=== PATIENT | male | born 1995 | race Caucasian/White ===

== ENCOUNTER 2019-03-05 12:59 | Inpatient (IN) | payer MEDICAID ==
[~2019-03-05] VITALS: Ht 177.8 cm; Wt 72.0 kg
--- NOTE | 2019-03-05 13:30 | NUR ---
ADMIT NOTE: Pt. transferred from [facility] after he was brought in for self harm by hitting himself in the head with a rock. Pt. has multiple macular, papular, erythemic self inflicated wounds on forehead and face. No signs and symptoms of infection noted. Pt. reports that this was the second episode he had of self harm in 2 days. Pt. states, "I wanted to because I'm not a woman... I asked someone if they could cut my penis off". Admission assessment done and Pt.'s body check done but belongings check endorsed to police shift commander. During assessment pt. had moments of responding to internal stimuli, pt. making meditative pose and than waving hands in the air saying, "I'm pushing bad thoughts away". Pt. reports that he came to [facility] in July of 2018 go to [employer]. Pt. originally from [place]. Pt. filled out TONNY and RN spoke with pt.'s mom who reported pt. was hospitalized for psychotic episode in 2018. Pt. reports smoking Cannibis daily. Pt. currently denies SI/HI, A/V hallucinations. Addendum: 03/05/19 at 1816 by Bert Woods RN Pt. is transgender and prefers female pronouns and to be called Poonam.
[2019-03-05] MEDS ORDERED: loperamide 2mg capsule PO PRN (13:40)
[2019-03-05] MEDS ORDERED: magnesium hydroxide 30ml (MOM) UD suspension PO PRN (13:40)
[2019-03-05] MEDS ORDERED: mag hydrox/Alum hydrox/simeth 30ml oral suspension PO PRN (13:40)
[2019-03-05] MEDS ORDERED: acetaminophen 325mg tablet PO PRN ×2 (13:40)
[2019-03-05 19:00] VITALS: BP 126/94
[2019-03-05] MEDS ORDERED: OLANZapine 5mg rapidly disint. tablet PO ONE (20:20)
--- NOTE | 2019-03-06 04:20 | NUR ---
Nursing Progress Note Legal hold:5150 Client on involuntary status for DTS, Report received from RHODA Ervin with use of SBAR. Why are they here:ADMIT NOTE: Pt. transferred from [facility] after he was brought in for self harm by hitting himself in the head with a rock. Pt. has multiple macular, papular, erythemic self inflicated wounds on forehead and face. No signs and symptoms of infection noted. Pt. reports that this was the second episode he had of self harm in 2 days. Pt. states, "I wanted to because I'm not a woman... I asked someone if they could cut my penis off". Admission assessment done and Pt.'s body check done but belongings check endorsed to tobacco sprayer. During assessment pt. had moments of responding to internal stimuli, pt. making meditative pose and than waving hands in the air saying, "I'm pushing bad thoughts away". Pt. reports that he came to [facility] in July of 2018 go to [employer]. Pt. originally from [place]. Pt. filled out TONNY and RN spoke with pt.'s mom who reported pt. was hospitalized for psychotic episode in 2018. Pt. reports smoking Cannibis daily. Pt. currently denies SI/HI, A/V hallucinations. Addendum: 03/05/19 at 1816 by Bert Woods RN Pt. is transgender and prefers female pronouns and to be called Poonam. Assessment: Patient is isolating in his room. He is sitting up. Patient is tearful. This health science writer introduced himself and shook patients hand. The patient speaks quietly and make spoor eye contact. The patient explains he was transfered from [place]. The patient describes injuries on his forhead from hitting self with a rock. Patients forhead is abraised, it appears the patient may be picking at the wounds also. This patient states suicidal ideation, "I would like to stick my finger in a light socket but it will not work. If I had a knive I would run it through my heart." Patient is oriented to person and place, he knows the year and the name of the president. 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 Patient exhibits a relegious preoccupation. Patient states he has no options in life. Tangential speech and loose association is present. "I'm having a fear of lifetime of patience, walking down the street, laying in a ditch being held tight, I'm trying not to overeat." The patient tells this health science writer that he identifies as female and wants to be called Poonam. The patient was given Zyprexa 10 mg PO, Ativan was given 1mg PO. Patient gradualy calmed somewhat. He requested and was allowed to shower. Patient then retired to bed without incident. S/I, H/I:Suicidal ideation is present. A/VH: Responding to internal stimuli. Sleep:Will tally in am. ADL's:Patient responds well to prompting. Group attendance:N/A, new on unit. Were meds taken:Patient is medication compliant. Any med S/E: No Mental Status Exam Appearance:Disheveled, in need of personal hygeine. Eye contact:Poor Behavior:Delusional Speech:Tangenical, loose association. Mood:Depressed, suicidal. Affect:Flat. Thought process:"I'm upset, thoughts of suicide. Thought Content: Need to kill myself. Cognition: Suicidal. Insight:Poor. Judgment:Poor. Interventions PRN's used:Zyprexa, Ativan Therapeutic interventions: 1:1 assessment, active listening, therapeutic conversation, medication administration/education/monitoring, encouragement of autonomy in ADLs, encouragement to attend groups, encouragement of PO food and fluids, reality orientation, limit setting, fall prevention, monitoring of behaviors and need for intervention, fall prevention prevention of SIB, elopement prevention, Q 15 min safety checks. Restraints/seclusion/emergency medication: None Justification of Continued Inpatient Treatment: Pt continues to endorse SI with a plan.Patient needs further medication adjustment and monitoring in a safe therapeutic environment to prevent self harm or readmission. Justification:High risk for suicide or serious self injury.
[2019-03-06 07:42] VITALS: BP 93/60
[2019-03-06 09:30] LABS: CHOL/HDL RATIO 2.4 (0.00-4.99); CHOLESTEROL 92 MG/DL (0-200); HDL CHOLESTEROL 39 MG/DL (35-60); LDL CHOLESTEROL 40 MG/DL (50-100); TRIGLYCERIDES 59 MG/DL (20-135)
[2019-03-06 09:33] LABS: HEMOGLOBIN A1C 5.5 % (4.5-6.2)
--- NOTE | 2019-03-06 15:51 | NUR ---
Nursing Progress Note Legal hold:5150 Client on involuntary status for DTS, Report received from Sandra Kumar RN with use of SBAR. Why are they here: Pt. transferred from [facility] after he was brought in for self harm by hitting himself in the head with a rock. Pt. has multiple macular, papular, erythemic self inflicated wounds on forehead and face. No signs and symptoms of infection noted. Pt. reports that this was the second episode he had of self harm in 2 days. Pt. states, "I wanted to because I'm not a woman... I asked someone if they could cut my penis off". Admission assessment done and Pt.'s body check done but belongings check endorsed to support technician. During assessment pt. had moments of responding to internal stimuli, pt. making meditative pose and than waving hands in the air saying, "I'm pushing bad thoughts away". Pt. reports that he came to [facility] in July of 2018 go to [facility]. Pt. originally from [place]. Pt. filled out TONNY and RN spoke with pt.'s mom who reported pt. was hospitalized for psychotic episode in 2018. Pt. reports smoking Cannabis daily. Pt. currently denies SI/HI, A/V hallucinations. Assessment: What has happened this shift: Received pt awake in his room. Pt was guarded and resistive to talking with staff. Pt appeared suspicious. Pt then stated that, people are walking by and I feel like theyre looking at me and really seeing me for who I am. Pt acted bothered by this. As this nurse began to talk more with him, trust was gained and pt more open to answer questions. Pt denies a/v hallucinations, but appeared internally preoccupied. Pt visible on the unit at times through out the day, but spent most of the time in his room. Pt remains disorganized with bizarre thoughts. Pt in the afternoon, was sitting on the floor of his room and when questioned stated, I dont like my material body, if I had a rock, Id smash my face right now. S/I, H/I:Suicidal ideation is present. A/VH: Responding to internal stimuli. Sleep:Will tally in am. ADL's:Patient responds well to prompting. Group attendance: partial Were meds taken: no meds ordered Any med S/E: No Mental Status Exam Appearance:Disheveled, in need of personal hygiene. Eye contact:Poor Behavior:Delusional Speech:Tangential, loose association. Mood:Depressed, suicidal. Affect:Flat. Thought process: bizarre and disorganized Thought Content: Need to kill myself. Cognition: Suicidal. Insight:Poor. Judgment:Poor. Interventions PRN's used: Therapeutic interventions: 1:1 assessment, active listening, therapeutic conversation, medication administration/education/monitoring, encouragement of autonomy in ADLs, encouragement to attend groups, encouragement of PO food and fluids, reality orientation, limit setting, fall prevention, monitoring of behaviors and need for intervention, fall prevention prevention of SIB, elopement prevention, Q 15 min safety checks. Restraints/seclusion/emergency medication: None Justification of Continued Inpatient Treatment: Pt continues to endorse SI with a plan.Patient needs further medication adjustment and monitoring in a safe therapeutic environment to prevent self harm or readmission. High risk for suicide or serious self injury.
[2019-03-06] MEDS ORDERED: NO HOME MEDS (16:36)
[2019-03-06 20:00] VITALS: BP 111/76
[2019-03-06] MEDS: OLANZapine 2.5MG tablet PO SCH (23:07)
[2019-03-06] MEDS: LORazepam 1 MG tablet PO PRN (23:07)
--- NOTE | 2019-03-07 04:36 | NUR ---
Nursing Progress Note Legal hold:5150 Client on involuntary status for DTS, Report received from Sandra Tomlinson RN with use of SBAR. Why are they here: Pt. transferred from [facility] after he was brought in for self harm by hitting himself in the head with a rock. Pt. has multiple macular, papular, erythemic self inflicated wounds on forehead and face. No signs and symptoms of infection noted. Pt. reports that this was the second episode he had of self harm in 2 days. Pt. states, "I wanted to because I'm not a woman... I asked someone if they could cut my penis off". Admission assessment done and Pt.'s body check done but belongings check endorsed to pearl glue operator. During assessment pt. had moments of responding to internal stimuli, pt. making meditative pose and than waving hands in the air saying, "I'm pushing bad thoughts away". Pt. reports that he came to [facility] in July of 2018 go to [facility]. Pt. originally from [place]. Pt. filled out TONNY and RN spoke with pt.'s mom who reported pt. was hospitalized for psychotic episode in 2018. Pt. reports smoking Cannabis daily. Pt. currently denies SI/HI, A/V hallucinations. Assessment: This patient is awake and well oriented. He ambulates the halls, then isolates in his room sitting on the floor. This patient wears a dress today. He does not openly discuss his sexual identity. Patient continues to respond to internal stimuli, he fixates on mandaen. The patient denies hearing voices, he then states "I don't hear them but they masquerade as my own voice." Patient states he felt some depression late afternoon but "I pulled myself out." Some moderate anxiety and pacing was present but resolved following Ativan administration PO. This patient is friendly, cooperative with staff, he is medication compliant. This patient is reassured that he is in a safe place. S/I, H/I:Patient denies on pearl glue operator. A/VH: Responding to internal stimuli. Sleep:Will tally in am. ADL's:Patient responds well to prompting. Group attendance: No group on pearl glue operator. Were meds taken: Patient is medication compliant. Any med S/E: None. Mental Status Exam Appearance:Disheveled, in need of personal hygiene. Eye contact: Fair. Behavior:Delusional Speech:Tangential, loose association. Mood: Depression present. Affect:Flat. Thought process: bizarre and disorganized Thought Content: Feeling depressed earlier but better now. Cognition: Poor. Insight:Poor. Judgment:Poor. Interventions PRN's used: Therapeutic interventions: 1:1 assessment, active listening, therapeutic conversation, medication administration/education/monitoring, encouragement of autonomy in ADLs, encouragement to attend groups, encouragement of PO food and fluids, reality orientation, limit setting, fall prevention, monitoring of behaviors and need for intervention, fall prevention prevention of SIB, elopement prevention, Q 15 min safety checks. Restraints/seclusion/emergency medication: None Justification of Continued Inpatient Treatment: Pt continues to endorse SI with a plan.Patient needs further medication adjustment and monitoring in a safe therapeutic environment to prevent self harm or readmission. High risk for suicide or serious self injury.
[2019-03-07 08:05] VITALS: BP 109/64
--- NOTE | 2019-03-07 15:05 | NUR ---
Nursing Progress Note Legal hold:5150 Client on involuntary status for DTS, Report received from Sandra Kumar RN with use of SBAR. Why are they here: Pt. transferred from [facility] after he was brought in for self harm by hitting himself in the head with a rock. Pt. has multiple macular, papular, erythemic self inflicated wounds on forehead and face. No signs and symptoms of infection noted. Pt. reports that this was the second episode he had of self harm in 2 days. Pt. states, "I wanted to because I'm not a woman... I asked someone if they could cut my penis off". Admission assessment done and Pt.'s body check done but belongings check endorsed to material handler 2nd shift. During assessment pt. had moments of responding to internal stimuli, pt. making meditative pose and than waving hands in the air saying, "I'm pushing bad thoughts away". Pt. reports that he came to [facility] in July of 2018 go to [facility]. Pt. originally from [place]. Pt. filled out TONNY and RN spoke with pt.'s mom who reported pt. was hospitalized for psychotic episode in 2018. Pt. reports smoking Cannabis daily. Pt. currently denies SI/HI, A/V hallucinations. Assessment: What has happened this shift: Received pt awake in his room. Pt was guarded and resistive to talking with staff. Pt appeared less suspicious today than yesterday. Pt denies a/v hallucinations, but appeared internally preoccupied at times. Pt visible on the unit at times through out the day, but spent most of the time in his room. Pt remains disorganized with bizarre thoughts. Pt in the afternoon, was standing in the window in his room looking through a samaritan book. Pt stated his thoughts were telling him that this person (staff talking to him) was just a bother and didnt really care. Pt stated he was able to ignore those thoughts as not true. Pt denied thoughts of self harm. S/I, H/I:denies A/VH: Responding to internal stimuli. Sleep:no napping today ADL's:Patient responds well to prompting. - took a shower this am. Group attendance: none Were meds taken: no meds ordered Any med S/E: No Mental Status Exam Appearance:Disheveled, in need of personal hygiene. Eye contact:Poor Behavior:Delusional Speech:Tangential, loose association. Mood:Depressed, suicidal. Affect:Flat. Thought process: bizarre and disorganized Thought Content: samaritan and about the merari leaf Cognition: Suicidal. Insight:Poor. Judgment:Poor. Interventions PRN's used: Therapeutic interventions: 1:1 assessment, active listening, therapeutic conversation, medication administration/education/monitoring, encouragement of autonomy in ADLs, encouragement to attend groups, encouragement of PO food and fluids, reality orientation, limit setting, fall prevention, monitoring of behaviors and need for intervention, fall prevention prevention of SIB, elopement prevention, Q 15 min safety checks. Restraints/seclusion/emergency medication: None Justification of Continued Inpatient Treatment: Pt continues to endorse SI with a plan.Patient needs further medication adjustment and monitoring in a safe therapeutic environment to prevent self harm or readmission. High risk for suicide or serious self injury.
[2019-03-07 19:58] VITALS: BP 113/72
[2019-03-07] MEDS: OLANZapine 2.5MG tablet PO SCH (20:30)
--- NOTE | 2019-03-08 01:03 | NUR ---
Nursing Progress Note Legal hold:5150 Client on involuntary status for DTS, Report received from Davi RN with use of SBAR. Why are they here: Pt. transferred from [facility] after he was brought in for self harm by hitting himself in the head with a rock. Pt. has multiple macular, papular, erythremic self inflicted wounds on forehead and face. No signs and symptoms of infection noted. Pt. reports that this was the second episode he had of self harm in 2 days. Pt. states, "I wanted to because I'm not a woman... I asked someone if they could cut my penis off". Admission assessment done and Pt.'s body check done but belongings check endorsed to assistant casino shift manager. During assessment pt. had moments of responding to internal stimuli, pt. making meditative pose and than waving hands in the air saying, "I'm pushing bad thoughts away". Pt. reports that he came to [facility] in July of 2018 go to [facility]. Pt. originally from [place]. Pt. filled out TONNY and RN spoke with pt.'s mom who reported pt. was hospitalized for psychotic episode in 2018. Pt. reports smoking Cannabis daily. Pt. currently denies SI/HI, A/V hallucinations. Assessment: What has happened this shift: Pt sitting cross legged on the floor in his room at the start of the shift. Pt prefers to be called Poonam. Pt smiles easily makes good eye contact. Conversation disorganized. When asked where he is from pt says "I can't remember" Then starts talking about walking [place] to [place] once. He traveled along the [address] free[address] often walking through forests. He said it did not take long to get there because he "scurries along like a rabbit." Pt said he did not remember how he got Multiple self inflicted wounds on his face and forehead. He describes his mood as "good". When asked about voices he said "I never wanted to smoke." later he did deny voices. Up to group room for snack and watched TV with other pts for a short time. Ambulated in the halls went back to bed. S/I, H/I:denies A/VH: Responding to internal stimuli. Sleep:Asleep at this time ADL's:Patient responds well to prompting. - took a shower this am. Group attendance: none Were meds taken: yes Any med S/E: No Mental Status Exam Appearance: Disheveled, in need of personal hygiene. Eye contact: Good Behavior: Pleasant cooperative Speech:Tangential, loose association. Mood:Pleasant cheerful Affect: animated Thought process: bizarre and disorganized Thought Content: tangential Cognition: fair Insight:Poor. Judgment:Poor. Interventions PRN's used: none Therapeutic interventions: 1:1 assessment, active listening, therapeutic conversation, medication administration/education/monitoring, encouragement of autonomy in ADLs, encouragement to attend groups, encouragement of PO food and fluids, reality orientation, limit setting, fall prevention, monitoring of behaviors and need for intervention, fall prevention prevention of SIB, elopement prevention, Q 15 min safety checks. Restraints/seclusion/emergency medication: None Justification of Continued Inpatient Treatment: Pt continues to endorse SI with a plan.Patient needs further medication adjustment and monitoring in a safe therapeutic environment to prevent self harm or readmission. High risk for suicide or serious self injury.
[2019-03-08 08:00] VITALS: BP 112/75
--- NOTE | 2019-03-08 14:30 | NUR ---
Provided Poonam with information on [facility] and [facility] at [facility] at her request. MARY Mai
--- NOTE | 2019-03-08 16:58 | NUR ---
Nursing Progress Note: Legal hold:5250 Client on involuntary status for DTS, Report received from RN with use of SBAR. Why are they here: Pt. transferred from [facility] after he was brought in for self harm by hitting himself in the head with a rock. Pt. has multiple macular, papular, erythemic self inflicated wounds on forehead and face. No signs and symptoms of infection noted. Pt. reports that this was the second episode he had of self harm in 2 days. Pt. states, "I wanted to because I'm not a woman... I asked someone if they could cut my penis off". Admission assessment done and Pt.'s body check done but belongings check endorsed to warehouse worker 2nd shift. During assessment pt. had moments of responding to internal stimuli, pt. making meditative pose and than waving hands in the air saying, "I'm pushing bad thoughts away". Pt. reports that he came to [facility] in July of 2018 go to [facility]. Pt. originally from [place]. Pt. filled out TONNY and RN spoke with pt.'s mom who reported pt. was hospitalized for psychotic episode in 2018. Pt. reports smoking Cannabis daily. Pt. currently denies SI/HI, A/V hallucinations. Assessment: What has happened this shift: Received pt awake in his room at the beginning of this shift. Pt pleasant, breif and pressured in conversation. Pt did not have AM medications but got up and ate meals in community room with others. Spent free time in room reading books he brought onto unit. Pt missed going on patio break and thought he was being deceived and became anxious and pressured and angry. He was able to be redirected and went back to his room to read and meditate. He appeares internally preoccupied at times, and responding visually with eye movements that appear he is seeing something. He spent most of the day in his room isolating to self. Pt remains disorganized with bizarre thoughts. Pt denied thoughts of self harm. S/I, H/I: Denies A/VH: Responding to internal stimuli. Sleep: None on this shift ADL's:Patient responds well to prompting. - took a shower this am. Group attendance: none Were meds taken: no meds ordered Any med S/E: No Mental Status Exam Appearance:Disheveled, in need of personal hygiene. Eye contact:Poor Behavior:Delusional Speech:Tangential, loose association. Mood:Anxious. Affect: Flat. Thought process: Bizarre and disorganized Thought Content: Roman [employer] issues Cognition: Suicidal. Insight:Poor. Judgment:Poor. Interventions PRN's used: Therapeutic interventions: 1:1 assessment, active listening, therapeutic conversation, medication administration/education/monitoring, encouragement of autonomy in ADLs, encouragement to attend groups, encouragement of PO food and fluids, reality orientation, limit setting, fall prevention, monitoring of behaviors and need for intervention, fall prevention prevention of SIB, elopement prevention, Q 15 min safety checks. Restraints/seclusion/emergency medication: None Justification of Continued Inpatient Treatment: Pt continues to endorse SI with a plan.Patient needs further medication adjustment and monitoring in a safe therapeutic environment to prevent self harm or readmission. High risk for suicide or serious self injury.
[2019-03-08] MEDS ORDERED: FLU VACC QS 2019-20 (6 MOS UP) 60 MCG/0.5 ML VIAL IMVAC ONE (17:15)
[2019-03-08] MEDS ORDERED: lurasidone 60mg tablet PO SCH (17:30)
[2019-03-08] MEDS ORDERED: lurasidone 20mg tablet PO SCH (18:17)
[2019-03-08] MEDS ORDERED: lurasidone 60mg tablet PO ONE (18:27)
[2019-03-08] MEDS ORDERED: lurasidone 20mg tablet PO ONE (18:28)
[2019-03-08 20:00] VITALS: BP 145/74
--- NOTE | 2019-03-09 00:30 | NUR ---
Nursing Progress Note: Legal hold:5250 Client on involuntary status for DTS, Report received from RN with use of SBAR. Why are they here: Pt. transferred from [facility] after he was brought in for self harm by hitting himself in the head with a rock. Pt. has multiple macular, papular, erythremic self inflicted wounds on forehead and face. No signs and symptoms of infection noted. Pt. reports that this was the second episode he had of self harm in 2 days. Pt. states, "I wanted to because I'm not a woman... I asked someone if they could cut my penis off". Admission assessment done and Pt.'s body check done but belongings check endorsed to drug safety physician. During assessment pt. had moments of responding to internal stimuli, pt. making meditative pose and than waving hands in the air saying, "I'm pushing bad thoughts away". Pt. reports that he came to [facility] in July of 2018 go to [facility]. Pt. originally from [place]. Pt. filled out TONNY and RN spoke with pt.'s mom who reported pt. was hospitalized for psychotic episode in 2018. Pt. reports smoking Cannabis daily. Pt. currently denies SI/HI, A/V hallucinations. Assessment: What has happened this shift: Pt awake at start of shift. Up on unit pleasant talkative disorganized thoughts. He has drawn on his face with felt markers. Denies SI or hallucinations. Not observed responding to internal stimuli. Pt cooperative with care took meds. Pt wants to be called Poonam. He is not wearing an arm band and refused to wear one that said Thaddeuss instead of Martha. S/I, H/I: Denies A/VH: Denies Sleep: Asleep at this time ADL's:Patient responds well to prompting. - took a shower this am. Group attendance: group room for snack Were meds taken: yes Any med S/E: No Mental Status Exam Appearance:Disheveled, in need of personal hygiene. Eye contact:Poor Behavior:Delusional Speech:Tangential, loose association. Mood:Anxious. Affect: Flat. Thought process: Bizarre and disorganized Thought Content: Yarsani issues Cognition: fair Insight:Poor. Judgment:Poor. Interventions PRN's used: Therapeutic interventions: 1:1 assessment, active listening, therapeutic conversation, medication administration/education/monitoring, encouragement of autonomy in ADLs, encouragement to attend groups, encouragement of PO food and fluids, reality orientation, limit setting, fall prevention, monitoring of behaviors and need for intervention, fall prevention prevention of SIB, elopement prevention, Q 15 min safety checks. Restraints/seclusion/emergency medication: None Justification of Continued Inpatient Treatment: Pt continues to endorse SI with a plan.Patient needs further medication adjustment and monitoring in a safe therapeutic environment to prevent self harm or readmission. High risk for suicide or serious self injury.
[2019-03-09 07:33] VITALS: BP 121/81
--- NOTE | 2019-03-09 16:17 | NUR ---
Nursing Progress Note: Legal hold:5250 Client on involuntary status for DTS, Report received from RN with use of SBAR. Why are they here: Pt. transferred from [facility] after he was brought in for self harm by hitting himself in the head with a rock. Pt. has multiple macular, papular, erythemic self inflicated wounds on forehead and face. No signs and symptoms of infection noted. Pt. reports that this was the second episode he had of self harm in 2 days. Pt. states, "I wanted to because I'm not a woman... I asked someone if they could cut my penis off". Admission assessment done and Pt.'s body check done but belongings check endorsed to shift engineer. During assessment pt. had moments of responding to internal stimuli, pt. making meditative pose and than waving hands in the air saying, "I'm pushing bad thoughts away". Pt. reports that he came to [facility] in July of [facility]. Pt. originally from [place]. Pt. filled out TONNY and RN spoke with pt.'s mom who reported pt. was hospitalized for psychotic episode in 2018. Pt. reports smoking Cannabis daily. Pt. currently denies SI/HI, A/V hallucinations. Assessment: What has happened this shift: Patient was asleep at change of shift and up for breakfast. Patient ate breakfast with a hoody on. Patient has noticeable scabbed wounds on her face. Patient in her room sitting on the floor. RN got patient a clean set of sheets and sat down in patient's room. Patient calm and cooperative. Patient asked if he still felt like harming himself. He sat quietly for about a minute and then said "no." Patient also denies hearing voices; however, patient is heard responding to internal stimuli in his room. Patient acts bizarre showing RN a small cup of yogurt telling her "it's a miracle working potion from the gods." Patient is holding what appears to be a book of Confucianist. Patient does not attend group and meditates in his room. S/I, H/I: Denies A/VH: Responding to internal stimuli. Sleep: None ADL's:Patient took shower yesterday but needs deodorant. Group attendance: none Were meds taken: no meds in am. Has med scheduled in 30 minutes. Any med S/E: No Mental Status Exam Appearance:Disheveled, in need of personal hygiene. Eye contact:Poor Behavior:Delusional Speech:Tangential, loose association. Mood:Anxious. Affect: Flat. Thought process: Bizarre and disorganized Thought Content: Judaism Cognition: Unknown Insight:Poor. Judgment:Poor. Interventions PRN's used: Therapeutic interventions: 1:1 assessment, active listening, therapeutic conversation, medication administration/education/monitoring, encouragement of autonomy in ADLs, encouragement to attend groups, encouragement of PO food and fluids, reality orientation, limit setting, fall prevention, monitoring of behaviors and need for intervention, fall prevention prevention of SIB, elopement prevention, Q 15 min safety checks. Restraints/seclusion/emergency medication: None Justification of Continued Inpatient Treatment: Pt continues to endorse SI with a plan.Patient needs further medication adjustment and monitoring in a safe therapeutic environment to prevent self harm or readmission. High risk for suicide or serious self injury.
[2019-03-09 20:00] VITALS: BP 111/70
--- NOTE | 2019-03-10 01:24 | NUR ---
Nursing Progress Note: Legal hold: 5250 Client on involuntary status for DTS, Report received from RHODA Ervin with use of SBAR. Why are they here: Pt. transferred from [facility] after he was brought in for self harm by hitting himself in the head with a rock. Pt. has multiple macular, papular, erythemic self inflicated wounds on forehead and face. No signs and symptoms of infection noted. Pt. reports that this was the second episode he had of self harm in 2 days. Pt. states, "I wanted to because I'm not a woman... I asked someone if they could cut my penis off". Admission assessment done and Pt.'s body check done but belongings check endorsed to oil field tester. During assessment pt. had moments of responding to internal stimuli, pt. making meditative pose and than waving hands in the air saying, "I'm pushing bad thoughts away". Pt. reports that he came to [facility] in July of [address] [facility]. Pt. originally from [place]. Pt. filled out TONNY and RN spoke with pt.'s mom who reported pt. was hospitalized for psychotic episode in 2018. Pt. reports smoking Cannabis daily. Pt. currently denies SI/HI, A/V hallucinations. Assessment: What has happened this shift: The patient was found in her room. She was sitting on the floor behind her door in a yoga pose reading a book. She is soft spoken and cooperative. She reports that the wounds on her face are from hitting it with a rock. She states that she hates being a woman in a man's body. "It's really hard to live. I can't do it...I can't live like this anymore." She says that she's a "forest dweller" because she doesn't like to be around people that won't accept her. "But there's nobody to talk to." The patient says she's depressed, but denies wanting to hurt herself right now. She spoke of the possibility of a support group, and seems interested. She was not observed responding to IS tonight. She isolated to her room all night. S/I, H/I: Denies A/VH: Not observed. Sleep: See sleep hours. ADL's: Independent. Group attendance: No groups at night Were meds taken: Yes, PRN's. Any med S/E: No Mental Status Exam Appearance: Disheveled, wounds on her face and forehead, wearing green unit scrubs. Eye contact: Good Behavior: Isolative. Speech: Tangential, loose association. Mood: depressed, anxious. Affect: Flat. Thought process: Bizarre and disorganized Thought Content: Mandaen Cognition: Unknown Insight:Poor. Judgment:Poor. Interventions PRN's used: Ativan, Maalox. Therapeutic interventions: 1:1 assessment, active listening, therapeutic conversation, medication administration/education/monitoring, encouragement of autonomy in ADLs, encouragement to attend groups, encouragement of PO food and fluids, reality orientation, limit setting, fall prevention, monitoring of behaviors and need for intervention, fall prevention prevention of SIB, elopement prevention, Q 15 min safety checks. Restraints/seclusion/emergency medication: None Justification of Continued Inpatient Treatment: Pt continues to endorse SI with a plan.Patient needs further medication adjustment and monitoring in a safe therapeutic environment to prevent self harm or readmission. High risk for suicide or serious self injury.
[2019-03-10] MEDS: LORazepam 1 MG tablet PO PRN ×2 (01:47→20:44)
[2019-03-10 07:17] VITALS: BP 113/75
--- NOTE | 2019-03-10 09:43 | NUR ---
Pt in group room squating on chair holding her mandaen "beads" . A "mandaen" symbol drawn on forehead with marker. In a very pleasant mod. Smiles appropriately.
--- NOTE | 2019-03-10 10:18 | NUR ---
Initial: Pt admit w/ psychosis w/ hx meth abuse. PO 75-100% avg regular diet w/ occasional refusal meeting needs. LBM 03/09. No nutrition concerns at this time. Will continue to monitor. Rec: 1. continue regular diet 2. bowel are as needed 3. wt per rx Addendum: 03/10/19 at [address] Amended: Links added.
--- NOTE | 2019-03-10 13:35 | NUR ---
Pt in his room sitting on bed conversing with warp dyeing vat tender. Earlier pt was walking in halls wit head down and would not make eye contact with anyone.
--- NOTE | 2019-03-10 15:05 | NUR ---
Pt was in art therapy when she took the felt pen and stabbed herself in the head. Pt was taken back to her room. Pt asked why she wants to harm herself and pt states she doesn't want to live like this. RN spoke with pt who states she is having nicotine withdrawals but does not want to have any nicotine to relieve the cravings. pt asked if she had any pens or pencils she could harm herself with. RN given a small pencil and felt marker voluntarily by pt.
--- NOTE | 2019-03-10 16:38 | NUR ---
Pt in community room. Pt has drawn "christian" symbols on arms in addition to the ones already on her face and neck. Pt was "given" some sticker gems which she has now placed on her arms.
[2019-03-10] MEDS: lurasidone 20mg tablet PO SCH (17:48)
[2019-03-10 20:00] VITALS: BP 101/75
--- NOTE | 2019-03-10 20:30 | NUR ---
Nursing Note: Ordered flu shot administered in left deltoid at HS, pt. tolerated procedure well. Pt. also reports small abrasion on rt. stomach, area appears to be scabbed, no s/s of infection. Obtained picture to place in chart, will continue to monitor.
[2019-03-10] MEDS ORDERED: LORazepam 1 MG tablet PO ONE (22:45)
[2019-03-11] MEDS ORDERED: quetiapine 100mg tablet PO ONE
--- NOTE | 2019-03-11 | NUR ---
Nursing Note: Pt. continuing to report insomnia at midnight, obtained order from VIELKA Dunham for Seroquel 100mg MRX1 (within one hour if ineffective). However, upon going to administer medication found pt. asleep, will continue to monitor.
--- NOTE | 2019-03-11 02:50 | NUR ---
Nursing Progress Note: Legal hold:5250 Client on involuntary status for DTS Report received from nurse with use of SBAR: RHODA Coleman Why are they here: Pt. transferred from [facility] after being brought in for self harm r/t hitting self in the head with a rock. Pt. has multiple self-inflicted wounds on forehead and face. Pt. reports that this was the second episode of self-inflicted harm in the past two days. Pt. states, "I wanted to because I'm not a woman... I asked someone if they could cut my penis off.". During admission, pt. had moments of responding to internal stimuli, making meditative poses and then waving hands in the air saying, "I'm pushing bad thoughts away". Pt. originally from [place], but has been homeless living in the [facility]. Pt. reports going to [facility] in July of 2018, to go to [employer], then feeling trapped there by a spiritual force. Pt. 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 Assessment What has happened this shift: Pt. laying in bed at the beginning of the shift reading a book, this health science writer introduced self and established rapport. Pt. presents as cooperative, restless, anxious, withdrawn, and guarded. Pt. denies S/I at this time, however states, "I have thoughts of running into the corner of the wall in my room." This health science writer educated pt. to alert staff when having these thoughts, pt. reported understanding. Pt. 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 I want to stay true to myself. People in [facility] were questioning me, it's like a wash. Every time that happens I become suicidal." When questioned by this health science writer regarding V/A/MORRIS, pt. reports V/MORRIS of shell lines going down the hallway. Pt. also presents with hyper-mandaen delusions. Shows this health science writer the shrine on the shelves near the bed dedicated to worshiping deities. The shrine is covered by a towel and pt. lifts the towel to show this health science writer. Pt. has placed yogurt in a plastic cup on the shelf, states, "This is an offering for them (the deities), when it's taken it's like a psychedelic." This health science writer removed cup of yogurt from pt's room and ensured that there were no sharp objects that pt. could potentially use to hurt self with, pt. reported understanding. Pt. reports wanting help with transitioning from male to female, and eventually maybe going to live with friends in [place], states, "They are my spiritual family." S/I, H/I: Pt. reports intermittent S/I, with a plan to run A/VH: Pt. reports V/MORRIS of shell lines going down the hallway Sleep: Pt. reports insomnia r/t anxiety, administered one dose of PRN Ativan with ineffectiveness. Pt. up pacing around bedroom at HS, wearing a towel around head and appeared to be meditating and internally preoccupied. Obtained order for second dose of Ativan, administered with effectiveness. ADL's: Pt. requires prompting and encouragement from staff Group attendance: Pt. attends HS snack Were meds taken: None ordered at HS Any med S/E: None Mental Status Exam Appearance: Hair disheveled and matted, appropriately dressed, however somewhat malodorous Eye contact: Good Behavior: Cooperative, restless, anxious, and withdrawn, and guarded Speech: Soft, and pressured at times Mood: Guarded Affect: Constricted Thought process: Circumstantial Thought Content: V/MORRIS and hyper-mandaen delusions Cognition: A&O X4 Insight: Poor Judgment: Poor Interventions PRN's used: Ativan X2 Therapeutic interventions: Introduced self and established rapport, ensured contract for safety, maintained a safe and supportive environment, monitored behaviors and need for intervention, provided clear and simple instructions, attempted to reorient to reality, and maintained Q 15 min safety checks. Restraints/seclusion/emergency medication: N/A Justification of Continued Inpatient Treatment: Pt. continues to require interruption of current crisis, medication adjustments, and a safe and supportive environment. Per Bob Ang, pt. would be a high risk discharge r/t risk for S/I and readmission.
--- NOTE | 2019-03-11 05:30 | NUR ---
Nursing Note: Pt. awakens, sitting up in bed with legs crossed, towel draped around head, appears to be meditating at this time. Pt. denies any needs and no s/s of distress exhibited, will continue to monitor.
[2019-03-11 08:38] VITALS: BP 103/71
--- NOTE | 2019-03-11 08:56 | NUR ---
Met with Poonam to inquire about her plans upon discharge. She was unclear where she wants to go. She talked about her mom calling today and that her mom does not want her to return to [place]. Asked her what she wants and she was unable to answer. She then talked about her "spiritual family" in [place] that she may be able to stay with. She stated she needs to change her certificate to state she is female otherwise she will continue to want to kill herself. Printed Poonam off information from the internet on how to change identity on a certificate and provided it to her. MARY Mai
--- NOTE | 2019-03-11 13:51 | NUR ---
Left message with Ann Marie Benson (ph# [phone]) at [facility]. Poonam requested literary writer call her to coordinate care. Poonam requested she change her Medi-ernesto to [facility]. Kailyn emailed [facility] to see if they could assist her with switching her Medi-ernesto. MARY Mai
[2019-03-11] MEDS: lurasidone 20mg tablet PO SCH ×2 (17:17→17:30)
[2019-03-11] MEDS ORDERED: lurasidone 20mg tablet PO ONE (17:50)
--- NOTE | 2019-03-11 18:32 | NUR ---
Nursing Progress Note: Legal hold: 5250 Client on involuntary status for DTS Report received from nurse with use of SBAR: RHODA Chun Why are they here: Pt. transferred from [facility] after being brought in for self harm r/t hitting self in the head with a rock. Pt. has multiple self-inflicted wounds on forehead and face. Pt. reports that this was the second episode of self-inflicted harm in the past two days. Pt. states, "I wanted to because I'm not a woman... I asked someone if they could cut my penis off.". During admission, pt. had moments of responding to internal stimuli, making meditative poses and then waving hands in the air saying, "I'm pushing bad thoughts away". Pt. originally from [place], but has been homeless living in the [facility]. Pt. reports going to [facility] in July of 2018, to go to [employer], then feeling trapped there by a spiritual force. Pt. 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 Assessment What has happened this shift: Pt. awake at start of shift and meditating in room on the floor. Pt. heard chanting. Pt. ate all meals in community room. 1:1 done at bedside. PT. appears anxious and guarded but Pt. denies SI/HI, A/V hallucinations. Pt. declined PRN anxiolytic. Pt reports anxiety and frustration regarding need to change the sex on certificate. RN encouraged pt. to speak with social work case manager regarding help with this. Pt seen pacing in the hallway. Pt.s Latuda increased to 80mg po at dinner time. S/I, H/I: Denies A/VH: Denies Sleep: Pt. napped x1 ADL's: Independent Group attendance: Yes Were meds taken: Yes Any med S/E: None Mental Status Exam Appearance: Hair disheveled and matted, appropriately dressed Eye contact: WNL Behavior: Cooperative, anxious, guarded Speech: WNL, pressured at times Mood: Anxious Affect: Constricted Thought process: Linear Thought Content: Focused on changing sex on certificate. Cognition: A&O X4 Insight: Poor Judgment: Poor Interventions PRN's used: None Therapeutic interventions: Introduced self and established rapport, ensured contract for safety, maintained a safe and supportive environment, monitored behaviors and need for intervention, provided clear and simple instructions, attempted to reorient to reality, and maintained Q 15 min safety checks. Restraints/seclusion/emergency medication: N/A Justification of Continued Inpatient Treatment: Pt. continues to require interruption of current crisis, medication adjustments, and a safe and supportive environment. Per Bob Ang, pt. would be a high risk discharge r/t risk for S/I and readmission.
[2019-03-11 19:40] VITALS: BP 117/72
[2019-03-11] MEDS: LORazepam 1 MG tablet PO PRN (20:54)
--- NOTE | 2019-03-12 00:22 | NUR ---
Nursing Progress Note: Legal hold: 5250 Client on involuntary status for DTS Report received from nurse with use of SBAR: RHODA Espino Why are they here: Pt. transferred from [facility] [place] after being brought in for self harm r/t hitting self in the head with a rock. Pt. has multiple self-inflicted wounds on forehead and face. Pt. reports that this was the second episode of self-inflicted harm in the past two days. Pt. states, "I wanted to because I'm not a woman... I asked someone if they could cut my penis off.". During admission, pt. had moments of responding to internal stimuli, making meditative poses and then waving hands in the air saying, "I'm pushing bad thoughts away". Pt. originally from [place], but has been homeless living in the [facility]. Pt. reports going to [facility] in July of 2018, to go to [employer], then feeling trapped there by a spiritual force. Pt. 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 Assessment What has happened this shift: This patient was sitting by himself in the day room following shift change. He later had snacks and moved to his room where he sat on the floor and meditated and used his rosary. The patient is well oriented, W/D, he has good color. Patients forehead abrasions are healing well. The patient makes direct eye contact when interviewed by this radio script writer. The patient denies S/I, H/I, or any hallucinations. The patient does state however that he is "a psychedelic with lavender/pamunkey to the left of me." Patient states he if feeling better now taking Latuda, he states it has decreased his hunger. The patient exhibits intermittent anxiety. In his room later in the evening he is crying for a few moments then happy the next. The patient states his goal is to get on food stamps and trade them for entry into a "[employer] festival in [place] this July. This patient is advised that he is in a safe place. He states he is happy to be here. S/I, H/I: Denies. A/VH: Denies, he describes visual hallucinations however. Sleep: Will compute sleep hours at 0500 hours. ADL's: Independent. Group attendance: Yes, on day shift. Were meds taken: Yes, patient is medication compliant. Any med S/E: None. Mental Status Exam Appearance: Wearing green scrubs. Grooming is improved. Eye contact: Good. Behavior: Cooperative, some anxiety, occasionally cries. Speech: Normal rate, rhythm, and tone. Mood: Anxious at times with brightening. Affect: Constricted. Thought process: Linear. Thought Content: Betting certificate changed to female. Cognition: A&O X4 Insight: Poor Judgment: Poor Interventions PRN's used: Ativan. Therapeutic interventions: Introduced self and established rapport, ensured contract for safety, maintained a safe and supportive environment, monitored behaviors and need for intervention, provided clear and simple instructions, attempted to reorient to reality, and maintained Q 15 min safety checks. Restraints/seclusion/emergency medication: N/A Justification of Continued Inpatient Treatment: Pt. continues to require interruption of current crisis, medication adjustments, and a safe and supportive environment. Per Bob Ang, pt. would be a high risk discharge r/t risk for S/I and readmission.
--- NOTE | 2019-03-12 02:56 | NUR ---
Patient is awake and pacing in his room. This ghost writer inquired why are you up? The patient replied that I always gets up at this hour, "I already slept eight hours." After talking with the patient he/she agrees to try and sleep. This patient denies any nightmares or hallucinations. The patient is cooperative with this ghost writer. Per the rounding log the patient has only slept five hours this evening.
[2019-03-12 07:32] VITALS: BP 113/81
--- NOTE | 2019-03-12 11:27 | NUR ---
PHONE CALL W/PARENTS Called Poonam's mom, Coco (ph# [phone]), at her request. Coco inquired about the discharge plan. Coco reported she will get a bus ticket to travel to wherever Poonam is discharged to. She reported she (Coco) has someone in [place] that Poonam may be able to stay with. She also talked about Joses "spiritual family" as another option (unclear where they live). Coco reported she currently lives in [place]. Called Poonam's dad, Nolberto (ph# [phone]). He reported he lives in a one bedroom apartment in [place] and does not have room for Poonam. He reported Poonam dropped out of school age 13 or 14. He stated, "he's 23 years old, he's an adult". He did not seem to support Poonam's identity. He stated, "a lot of things you accept, we don't accept here (in [place])". He reported Poonam has traveled across the country at least 5 times via [facility] over the last couple years. He reported Poonam has a history of drug use. He reported he and Poonam's mom and his mom went to [facility] use. He reported Poonam's mom currently lives in a "half way house". He reported he thinks Poonam needs to be in some sort of state hospital to work through all the trauma she has had due to being homeless and traveling. When meeting with Poonam she did not seem to know where she would like to go upon discharge. She indicated she has been in [place] in the past and did not have positive experiences. She is more focused on addressing her gender issues rather than focusing on her basic needs. Talked to Rafia [facility], regarding possibility of [facility] referral IF Poonam's medi-ernesto is changed to [place]. Rafia reported she will consult about this. She recommended that we do NOT change Poonam's medi-ernesto. MARY Mai
--- NOTE | 2019-03-12 11:50 | NUR ---
Spoke with Ann Marie Benson (ph# [phone]) at [facility]. Poonam had called to schedule an appt to start services with their [facility]. Ann Marie reported Poonam would need to have Nicole [facility] to receive their services. Ann Marie reported she will fax an intake packet for Poonam to complete if she wants to. MARY Mai
--- NOTE | 2019-03-12 13:01 | NUR ---
Provided Poonam with information and phone numbers to change her Medi-ernesto to [facility]. MARY Mai
[2019-03-12] MEDS ORDERED: diphenhydrAMINE 50 mg/ml inj IM ONE (13:25)
[2019-03-12] MEDS ORDERED: LORazepam 2 mg/ml vial IM ONE (13:25)
[2019-03-12] MEDS ORDERED: haloperidol lactate 5mg/ml inj IM ONE (13:25)
[2019-03-12] MEDS ORDERED: diphenhydrAMINE 25mg capsule PO ONE (13:25)
[2019-03-12] MEDS ORDERED: haloperidol 5mg tablet PO ONE (13:25)
[2019-03-12] MEDS ORDERED: LORazepam 1 MG tablet PO ONE (13:25)
[2019-03-12] MEDS: lurasidone 20mg tablet PO SCH (17:45)
--- NOTE | 2019-03-12 18:00 | NUR ---
Nursing Progress Note: Legal hold: 5250 Client on involuntary status for DTS Report received from nurse with use of SBAR: Sandra Kumar RN Why are they here: Pt. transferred from [facility] after being brought in for self harm r/t hitting self in the head with a rock. Pt. has multiple self-inflicted wounds on forehead and face. Pt. reports that this was the second episode of self-inflicted harm in the past two days. Pt. states, "I wanted to because I'm not a woman... I asked someone if they could cut my penis off. During admission, pt. had moments of responding to internal stimuli, making meditative poses and then waving hands in the air saying, "I'm pushing bad thoughts away". Pt. originally from [place], but has been homeless living in the [facility]. Pt. reports going to [facility] in July of 2018, to go to [employer], then feeling trapped there by a spiritual force. Pt. 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 Assessment What has happened this shift: Pt. awake at start of shift and meditating on floor in room. Pt. ate all meals in community room. 1:1 done at bedside. Pt. offers minimal information during interview. Pt. denies SI/HI, A/V hallucinations. In afternoon a loud scream and a bang was heard from pt.s room, pt. reportedly rammed head into the corner of the wall of pt.s room. Pt. received Haldol 10mg, Ativan 2mg and Benadryl 50mg po with good effect and placed on line of sight. CT scan done which resulted in the followin. Streak and motion artifact somewhat degrades the exam. 2. No gross intracranial hemorrhage. 3. Mild frontal scalp soft tissue swelling. Swelling of left middle finger noted and X-ray done which showed soft tissue swelling but no fracture. Pt. reports he felt overwhelmed after being explained the process of applying for benefits in [facility] and pt. stated, I just had that Im not a girl. Pt. became tearful stating, I miss my mom. S/I, H/I: Denies A/VH: Denies Sleep: Pt. napped x1 ADL's: Independent Group attendance: Yes Were meds taken: Yes Any med S/E: None Mental Status Exam Appearance: Hair disheveled and matted, appropriately dressed Eye contact: WNL Behavior: Cooperative, anxious, guarded Speech: WNL, pressured at times Mood: Anxious Affect: Constricted Thought process: Linear Thought Content: Focused on changing sex to female. Also mother in [place]. Cognition: A&O X4 Insight: Poor Judgment: Poor Interventions PRN's used: None Therapeutic interventions: Introduced self and established rapport, ensured contract for safety, maintained a safe and supportive environment, monitored behaviors and need for intervention, provided clear and simple instructions, attempted to reorient to reality, and maintained Q 15 min safety checks. Restraints/seclusion/emergency medication: N/A Justification of Continued Inpatient Treatment: Pt. continues to require interruption of current crisis, medication adjustments, and a safe and supportive environment. Per Bob Ang, pt. would be a high risk discharge r/t risk for S/I and readmission.
[2019-03-12 20:00] VITALS: BP 99/50
--- NOTE | 2019-03-12 23:45 | NUR ---
Nursing Progress Note: Legal hold: 5250 Client on involuntary status for DTS Report received from nurse with use of SBAR: RHODA Espino Why are they here: Pt. transferred from [facility] after being brought in for self harm r/t hitting self in the head with a rock. Pt. has multiple self-inflicted wounds on forehead and face. Pt. reports that this was the second episode of self-inflicted harm in the past two days. Pt. states, "I wanted to because I'm not a woman... I asked someone if they could cut my penis off. During admission, pt. had moments of responding to internal stimuli, making meditative poses and then waving hands in the air saying, "I'm pushing bad thoughts away". Pt. originally from [place], but has been homeless living in the [facility]. Pt. reports going to [facility] in July of 2018, to go to [employer], then feeling trapped there by a spiritual force. Pt. 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 Assessment What has happened this shift: Patient is in room sleeping in bed at change of shift, with a PCT by the bedside. Patient does not leave the room this evening and spends all evening sleeping. Patient does not wake enough to talk when assessment is being completed, and is fairly sedated this evening, waking up but immediately falling back asleep. Patient is okay with a brief physical assessment but sleeps through all of it. Patient remains LOS for safety. S/I, H/I: Denies, but hit head on wall today during day shift. Remains LOS for patients safety. A/VH: Denies Sleep: Currently sleeping, see sleep assessment ADL's: Independent Group attendance: No groups this shift Were meds taken: Yes Any med S/E: None Mental Status Exam Appearance: Hair disheveled and matted, appropriately dressed Eye contact: WNL Behavior: Fatigued, sleeping Speech: Pressured Mood: Fatigued, slept all of shift Affect: Constricted Thought process: Linear Thought Content: Unable to assess patient is tired and sleeps all of shift Cognition: A&O X4 Insight: Poor Judgment: Poor Interventions PRN's used: None Therapeutic interventions: Introduced self and established rapport, ensured contract for safety, maintained a safe and supportive environment, monitored behaviors and need for intervention, provided clear and simple instructions, attempted to reorient to reality, and maintained Q 15 min safety checks. Restraints/seclusion/emergency medication: N/A Justification of Continued Inpatient Treatment: Pt. continues to require interruption of current crisis, medication adjustments, and a safe and supportive environment. Per Bob Ang, pt. would be a high risk discharge r/t risk for S/I and readmission.
[2019-03-13] MEDS: LORazepam 1 MG tablet PO PRN (01:56)
--- NOTE | 2019-03-13 03:14 | NUR ---
Nurse Note: At approximately 0150 a loud noise was heard in patients room. When staff presented to the room patient was laying on the floor, and the bedside shelves were laying on the floor across the room. PCT sitter reported that patient laid on the floor but would not respond when being talked to, patient then began yelling stating that "Why would you put that pretty bitch in here?" Patient reports being upset about having a pretty girl being in her room to be her sitter and states "I want to claw my eyes out." "I pushed that because I wanted it to fall on my head." Patient makes several delusional statements during this exchange that don't relate to the conversation at hand talking about "walking through shit", "Wiping with enid plated toilet paper" and also reports being an "ogre". Patient is agitated and not wanting to work with staff. An arrangement is made to change patients sitter for a new one and the patient becomes more cooperative agrees to get back in bed and take an Ativan for agitation. All items are removed from patients room at this time as patient is actively seeking a way to harm herself. It is also noted that a plastic butter knife that went missing from the lunch trays at dinner was located in the patients room as well. Patient requests to have no pretty girls sit with her as it "triggers" her. Patient remains on 1:1 for safety.
[2019-03-13 07:00] VITALS: BP 92/57
--- NOTE | 2019-03-13 17:50 | NUR ---
Nursing Progress Note: Legal hold: 5250 Client on involuntary status for DTS Report received from nurse with use of SBAR: CHAN Flores Why are they here: Pt. transferred from [facility] after being brought in for self harm r/t hitting self in the head with a rock. Pt. has multiple self-inflicted wounds on forehead and face. Pt. reports that this was the second episode of self-inflicted harm in the past two days. Pt. states, "I wanted to because I'm not a woman... I asked someone if they could cut my penis off. During admission, pt. had moments of responding to internal stimuli, making meditative poses and then waving hands in the air saying, "I'm pushing bad thoughts away". Pt. originally from [place], but has been homeless living in the [facility]. Pt. reports going to [facility] in July of 2018, to go to [employer], then feeling trapped there by a spiritual force. Pt. 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 Assessment What has happened this shift: Pt responds to internal stimuli trying to pick things up from the floor. Getting clothes washed so wearing green scrub pants and shirts. Listening to headphones and watching TV in group. Denies SI and states never for HI. States she had a good night sleep and is good today. Spends time coloring in room. No aggressive or negative behaviors noted. Pt taken off LOS per Mirella Rodriguez PA S/I, H/I: Denies. Remains LOS for patients safety for most of the day, dcd late afternoon. A/VH: Denies but responding to internal stimuli trying to pick things up from the ground. Sleep: Naps through the day. ADL's: Independent Group attendance: No Were meds taken: Yes Any med S/E: None Mental Status Exam Appearance: Hair disheveled and matted, appropriately dressed. Took shower this am. Eye contact: Good Behavior: Calm. Speech: WNL Mood: Ok Affect: Constricted Thought process: Linear Thought Content: Responds to internal stimuli. Preoccupation with gender. Cognition: A&O X4 Insight: Poor Judgment: Poor Interventions PRN's used: None Therapeutic interventions: Introduced self and established rapport, ensured contract for safety, maintained a safe and supportive environment, monitored behaviors and need for intervention, provided clear and simple instructions, attempted to reorient to reality, and maintained Q 15 min safety checks. Restraints/seclusion/emergency medication: N/A Justification of Continued Inpatient Treatment: Pt. continues to require interruption of current crisis, medication adjustments, and a safe and supportive environment. Per Bob Ang, pt. would be a high risk discharge r/t risk for S/I and readmission.
[2019-03-13] MEDS: lurasidone 20mg tablet PO SCH (18:01)
[2019-03-13 20:00] VITALS: BP 107/63
[2019-03-13] MEDS: traZODone 50mg tablet PO PRN (22:10)
--- NOTE | 2019-03-14 01:38 | NUR ---
Nursing Progress Note: Legal hold: 5250 Client on involuntary status for DTS Report received from nurse with use of SBAR: CHAN Espino Why are they here: Pt. transferred from [facility] after being brought in for self harm r/t hitting self in the head with a rock. Pt. has multiple self-inflicted wounds on forehead and face. Pt. reports that this was the second episode of self-inflicted harm in the past two days. Pt. states, "I wanted to because I'm not a woman... I asked someone if they could cut my penis off. During admission, pt. had moments of responding to internal stimuli, making meditative poses and then waving hands in the air saying, "I'm pushing bad thoughts away". Pt. originally from [place], but has been homeless living in the [facility]. Pt. reports going to [facility] in July of 2018, to go to [employer], then feeling trapped there by a spiritual force. Pt. 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 Assessment What has happened this shift: Pt observed to be walking the unit between the TV room and her bedroom. Occasionally interacting with peers. Pt states she has been looking the pictures on the wilder, and she sees Buddhas in them; in order to be a Buddha she must lie down. "This is the path to not hit myself. I need to be on the path." Pt changes topics sporadically during assessment, responding to questions tangentially and nonsensically. 'I hit my head, because it is the fragments of the earth and there was not a curb. I am tired of the redneck people behind me with their engines. I'm judging them." Pt continues by stating she will be better from now on so that she may go back to [place]. Pt reading a book prior to requested sleep aid administration, then attempting to sleep shortly thereafter. S/I, H/I: Denies Both A/VH: Denies Both Sleep: See Sleep Assessment, requested sleep aid this evening ADL's: Independent Group attendance: N/A Were meds taken: Yes Any med S/E: None reported nor observed Mental Status Exam Appearance: Personal top and unit scrub bottoms, hair is matted with dreadlocks, nonskid socks Eye contact: Direct Behavior: Cooperative, Calm, Attended snack, Reading, Watching TV Speech: WNL, Clear Mood: Good" Affect: Blunted with brightening Thought process: Tangential Thought Content: to not director of accounts payable others, to improve behavior so she can leave Cognition: A&Ox4 Insight: Poor Judgment: Poor Interventions PRN's used: Trazodone 100mg for sleep Therapeutic interventions: Introduced self and established rapport, ensured contract for safety, maintained a safe and supportive environment, 1:1 assessment, monitored behaviors and need for intervention, maintained Q 15 min safety checks. Restraints/seclusion/emergency medication: N/A Justification of Continued Inpatient Treatment: Pt. continues to require interruption of current crisis, medication adjustments, and a safe and supportive environment. Per Bob Ang, pt. would be a high risk discharge r/t risk for S/I and readmission.
[2019-03-14 08:00] VITALS: BP 103/75
[2019-03-14] MEDS ORDERED: aripiprazole 400mg suspension ER syringe IM ONE (08:00)
--- NOTE | 2019-03-14 15:20 | NUR ---
Nursing Progress Note: Legal hold: 5250 Client on involuntary status for DTS Report received from nurse with use of SBAR: CHAN Anna Why are they here: Pt. transferred from [facility] after being brought in for self harm r/t hitting self in the head with a rock. Pt. has multiple self-inflicted wounds on forehead and face. Pt. reports that this was the second episode of self-inflicted harm in the past two days. Pt. states, "I wanted to because I'm not a woman... I asked someone if they could cut my penis off. During admission, pt. had moments of responding to internal stimuli, making meditative poses and then waving hands in the air saying, "I'm pushing bad thoughts away". Pt. originally from [place], but has been homeless living in the [facility]. Pt. reports going to [facility] in July of 2018, to go to [employer], then feeling trapped there by a spiritual force. Pt. 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 Assessment What has happened this shift: Pt was up early before breakfast though returned to room when breakfast came and declined to eat. Pt stated that she had a peanut butter and jelly sandwich last night for a snack and so was not hungry. Pt reported waking up around 0300 and then could not get back to sleep, pt stated this was not unusual for her. Pt denied depression, anxiety, SI/HI/AH/VH. When asked why she was here she stated that, "I've been having nervous breakdowns lately." Pt complimented this RN's tennis shoes. Pt wears a towel draped over here hair at times, she is mostly isolative to self though did attend morning group and afternoon movie. Pt received her first dose of Abilify 400 mg IM this morning in her left deltoid, no adverse effects noted. Pt understands that the plan is for Latuda to be discontinued. S/I, H/I: Pt denies. A/VH: Pt denies. Sleep: Pt reported waking up at 0300 and not being able to get back to sleep. ADL's: Independent, pt showered though still is somewhat malodorous, dirt came off on alcohol swab when left deltoid cleansed before Abilify injection. Group attendance: Yes Were meds taken: Yes Any med S/E: None noted or reported. Mental Status Exam Appearance: Disheveled hair pulled back with a glitter gem noted in hair, dressed in green hospital scrubs and nonskid socks, frequently walks around with a towel over her head. Eye contact: Good. Behavior: Cooperative, polite, mostly isolative to self, wears radio headphones and reads at times. Speech: Clear, audible, normal rate and rhythm, minimal Mood: Good" Affect: somewhat restricted Thought process: linear Thought Content: not hungry this morning, wakes up very early and can't get back to sleep Cognition: A/O X 4 Insight: Poor Judgment: Poor Interventions PRN's used: N/A Therapeutic interventions: 1:1 assessment, establishment of rapport, encouragement to express thoughts and feelings, active listening, encouragement to attend groups, ensured contract for safety, positive reinforcement, medication administration/education/monitoring, maintained Q 15 min safety checks. Restraints/seclusion/emergency medication: N/A Justification of Continued Inpatient Treatment: Pt. continues to require interruption of current crisis, medication adjustments, and a safe and supportive environment. Per Bob Ang, pt. would be a high risk for discharge at this time.
[2019-03-14] MEDS: lurasidone 20mg tablet PO SCH (17:44)
[2019-03-14 19:47] VITALS: BP 117/80
--- NOTE | 2019-03-15 00:04 | NUR ---
Nursing Progress Note: Legal hold: 5250 Client on involuntary status for DTS Report received from nurse with use of SBAR: CHAN Ervin Why are they here: Pt. transferred from [facility] after being brought in for self harm r/t hitting self in the head with a rock. Pt. has multiple self-inflicted wounds on forehead and face. Pt. reports that this was the second episode of self-inflicted harm in the past two days. Pt. states, "I wanted to because I'm not a woman... I asked someone if they could cut my penis off. During admission, pt. had moments of responding to internal stimuli, making meditative poses and then waving hands in the air saying, "I'm pushing bad thoughts away". Pt. originally from [place], but has been homeless living in the [facility]. Pt. reports going to [facility] in July of 2018, to go to [employer], then feeling trapped there by a spiritual force. Pt. 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 Assessment What has happened this shift: Pt in room at start of shift. Pt Tearing a paper bag into pieces. "I am making beads out of paper." Pt did produce an impressive necklace made out of the paper bag. No delusional thoughts expressed, denies SI or AH. Pt does not have any idea what is the DC plan for her. C/o constipation given MOM and prune juice. S/I, H/I: Pt denies. A/VH: Pt denies. Sleep: Asleep at this time had some difficulty getting to sleep but declined sleep medications. ADL's: Independent Group attendance: Yes Were meds taken: Yes Any med S/E: None noted or reported. Mental Status Exam Appearance: Disheveled hair pulled back with a glitter gem noted in hair, dressed in green hospital scrubs and nonskid socks, frequently walks around with a towel over her head. Eye contact: Good. Behavior: Cooperative, polite, mostly isolative to self, wears radio headphones and reads at times. Speech: Clear, audible, normal rate and rhythm, minimal Mood: Good" Affect: somewhat restricted Thought process: linear Thought Content: making art such as necklacce Cognition: A/O X 4 Insight: Poor Judgment: Poor Interventions PRN's used: N/A Therapeutic interventions: 1:1 assessment, establishment of rapport, encouragement to express thoughts and feelings, active listening, encouragement to attend groups, ensured contract for safety, positive reinforcement, medication administration/education/monitoring, maintained Q 15 min safety checks. Restraints/seclusion/emergency medication: N/A Justification of Continued Inpatient Treatment: Pt. continues to require interruption of current crisis, medication adjustments, and a safe and supportive environment. Per Bob Ang, pt. would be a high risk for discharge at this time.
[2019-03-15] MEDS: LORazepam 1 MG tablet PO PRN ×2 (04:36→14:40)
[2019-03-15 07:10] VITALS: BP 112/76
--- NOTE | 2019-03-15 12:39 | NUR ---
Nursing Progress Note: Legal hold: 5250 Client on involuntary status for DTS Report received from nurse with use of SBAR: Catherine RN Why are they here: Pt. transferred from [facility] after being brought in for self harm r/t hitting self in the head with a rock. Pt. has multiple self-inflicted wounds on forehead and face. Pt. reports that this was the second episode of self-inflicted harm in the past two days. Pt. states, "I wanted to because I'm not a woman... I asked someone if they could cut my penis off. During admission, pt. had moments of responding to internal stimuli, making meditative poses and then waving hands in the air saying, "I'm pushing bad thoughts away". Pt. originally from [place], but has been homeless living in the [facility]. Pt. reports going to [facility] in July of 2018, to go to [place], then feeling trapped there by a spiritual force. Pt. 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 Assessment What has happened this shift: Pt was up and showered before breakfast. Pt stated that she was "super" today. Pt did c/o some restlessness/increased energy last night. She had some difficulty falling asleep but per noc shift report was reluctant to take prn Trazodone as she felt it caused bad dreams. She woke up at 0430 and could not get back to sleep so was given Ativan 1 mg @ 0430 which pt stated was helpful. Pt denied depression, anxiety, SI/HI/AH/VH. Pt denied any side effects from Abilify injection yesterday. Noted a long piece of dried grass with a knot in it hanging from the back of pt's sweater. Pt stated, "oh, that was in my bed." S/I, H/I: Pt denies. A/VH: Pt denies. Sleep: Pt slept 4.75 hours per noc shift report, has difficulty falling and staying asleep. ADL's: Independent, showered before breakfast. Group attendance: Yes Were meds taken: None scheduled in the morning. Any med S/E: None noted or reported. Mental Status Exam Appearance: Clean, neat, wore hair down for awhile after shower, pt did not place a towel over her head so far this shift. Eye contact: Good. Behavior: Cooperative, friendly, polite, listens to radio headphones and reads. Speech: Clear, audible, normal rate and rhythm Mood: Super" Affect: somewhat shy Thought process: linear Thought Content: some concern over sleep issues Cognition: A/O X 4 Insight: Fair Judgment: Fair Interventions PRN's used: N/A Therapeutic interventions: 1:1 assessment,encouragement to express thoughts and feelings, active listening, encouragement to attend groups, ensured contract for safety, positive reinforcement, medication administration/education/monitoring, maintained Q 15 min safety checks. Restraints/seclusion/emergency medication: N/A Justification of Continued Inpatient Treatment: Pt. continues to require interruption of current crisis, medication adjustments, and a safe and supportive environment, pt would be a high risk for discharge at this time. Addendum: 03/15/19 at 1419 by Corinna Santamaria" Woodman DUONG Pt requested to speak with this RN. Pt stated that she has a friend named Octavio in [facility] that she could go stay with if she had transportation. Pt has stayed there before, states she was in [place] before coming out here. Pt wished for Edel ANTONIETTA to be notified so she could call and speak with the friend. Friend's phone number is [phone]. Addendum: 03/15/19 at 1502 by Corinna Anderson (Lee) RN At around 1430 pt asked when it would be snack time. Determined that pt was hungry as she is a vegetarian and had received meat on her tray for lunch. Pt was hesitant to divulge this as she did not wish to cause trouble for anyone, "it happens." Provided pt with a peanut butter and jelly sandwich and a milk. Pt went to the rec room to eat her snack. On the way to the rec room let pt know that it was art therapy time and gently encouraged pt to attend. Pt politely declined stating that she had gone before and didn't like it. This RN did not push the issue. A little while later, another RN reported that something happened with the art therapist that upset the pt and the pt had made statements about feeling like going and bashing her head against something. Pt was receptive to taking something to help her calm down. Ativan 1 mg PO given at 1440. Sat down with pt to discuss what had happened. Evidently someone else had approached the pt and again encouraged attending art therapy which had triggered the pt. Pt stated she just didn't want to go to art therapy because she had gone before and felt like the instructor was not very nice to her, "some people are just like that to me." Discussed varying personalities and mannerisms and how it may not be that someone doesn't like her but just the way some people are with everybody. Discussed boundaries and how it is okay to remove oneself from being around people who make us feel uncomfortable for whatever reason. Positive reinforcement provided. Ensured that pt was now feeling safe. Pt stated that she was okay now and would not do anything to hurt herself.
[2019-03-15] MEDS: lurasidone 20mg tablet PO SCH (18:04)
[2019-03-15 20:00] VITALS: BP 99/69
[2019-03-15] MEDS: traZODone 50mg tablet PO PRN (20:55)
--- NOTE | 2019-03-15 23:47 | NUR ---
Nursing Progress Note: Legal hold: 5250 Client on involuntary status for DTS Report received from nurse with use of SBAR: CHAN Ervin Why are they here: Pt. transferred from [facility] after being brought in for self harm r/t hitting self in the head with a rock. Pt. has multiple self-inflicted wounds on forehead and face. Pt. reports that this was the second episode of self-inflicted harm in the past two days. Pt. states, "I wanted to because I'm not a woman... I asked someone if they could cut my penis off. During admission, pt. had moments of responding to internal stimuli, making meditative poses and then waving hands in the air saying, "I'm pushing bad thoughts away". Pt. originally from [place], but has been homeless living in the [facility]. Pt. reports going to [facility] in July of 2018, to go to [place], then feeling trapped there by a spiritual force. Pt. 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 Assessment What has happened this shift: Pt up on unit at start of shift. Received a call from her grandma. Pt Says her mood is good "my only worry is will I be able to sleep" Pt denies thoughts of harming herself at this time but admits to having these thoughts earlier today. Asked If he has a strategy to avoid hurting himself after discharge she said "It won't be a problem because I will be with my loved ones in [place]." Pt given Trazodone for sleep she is sleeping at this time. S/I, H/I: Pt denies. A/VH: Pt denies. Sleep: Asleep at this time ADL's: Independent Group attendance: Yes Were meds taken: Yes Any med S/E: None noted or reported. Mental Status Exam Appearance: Disheveled hair pulled back with a glitter gem noted in hair, dressed in green hospital scrubs and nonskid socks, frequently walks around with a towel over her head. Eye contact: Good. Behavior: Cooperative, polite, mostly isolative to self, wears radio headphones and reads at times. Speech: Clear, audible, normal rate and rhythm, minimal Mood: Good" Affect: somewhat restricted Thought process: linear Thought Content: DC to [place] Cognition: A/O X 4 Insight: Poor Judgment: Poor Interventions PRN's used: N/A Therapeutic interventions: 1:1 assessment, establishment of rapport, encouragement to express thoughts and feelings, active listening, encouragement to attend groups, ensured contract for safety, positive reinforcement, medication administration/education/monitoring, maintained Q 15 min safety checks. Restraints/seclusion/emergency medication: N/A Justification of Continued Inpatient Treatment: Pt. continues to require interruption of current crisis, medication adjustments, and a safe and supportive environment. Per Bob Ang, pt. would be a high risk for discharge at this time.
[2019-03-16 07:44] VITALS: BP 100/58
--- NOTE | 2019-03-16 11:10 | NUR ---
Nursing Progress Note: Legal hold: 5250 Client on involuntary status for DTS Report received from nurse with use of SBAR: Lay RN Why are they here: Pt transferred from [facility] after being brought in for self harm r/t hitting self in the head with a rock. Pt. has multiple self-inflicted wounds on forehead and face. Pt. reports that this was the second episode of self-inflicted harm in the past two days. Pt. states, "I wanted to because I'm not a woman... I asked someone if they could cut my penis off. During admission, pt. had moments of responding to internal stimuli, making meditative poses and then waving hands in the air saying, "I'm pushing bad thoughts away". Pt. originally from [place], but has been homeless living in the [facility]. Pt. reports going to [facility] in July of 2018, to go to [employer], then feeling trapped there by a spiritual force. Pt. 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 Assessment What has happened this shift: Pt requested a shower before breakfast as she does daily. Pt ate breakfast then sat in the rec room by herself reading. Pt had a glum expression on her face. Asked her if she was feeling depressed. Pt replied, "no, not depressed, just anxious to start on HRT." Pt denied SI/HI/AH/VH or urge to engage in self-injurious behavior. A few minutes later pt approached this RN in the charting room to say "I totally did...earlier in the shower..." Pt admitted that she had thought about and felt the urge to bash her head against the corner of a wall in the shower. "I don't want to lie." Thanked pt for being honest and asked pt what had made her feel like doing this to herself, she replied, "because I just want to be a real girl so bad." Positive reinforcement provided that pt was able to stop herself from acting on her thoughts/urges. Asked pt how she had managed this. She replied, "I thought about God." Discussed coping mechanisms and encouraged pt to explore other outlets for frustration than banging her head against things. Discussed concepts of short term vs mcfp goals as well as maintaining hope and having patience in attaining them. Notified IDT of pt's wish to go and stay with friends in [place]. Dr Alfaro plans to start pt on a daily antidepressant. S/I, H/I: Pt denies, though admits to thoughts of SIB; banging head on wall. A/VH: Pt denies. Sleep: Pt slept 7.75 hours per noc shift report, she did take Trazodone last night. ADL's: Independent, showered before breakfast. Group attendance: Yes Were meds taken: None scheduled in the morning. Any med S/E: None noted or reported. Mental Status Exam Appearance: Clean, neat, has some dread locks in her hair, wore it pulled back today. Eye contact: Good. Behavior: Pleasant, cooperative, mostly isolative to self, likes to read. Speech: Clear, audible, normal rate and rhythm Mood: Anxious Affect: Sad, depressed Thought process: linear Thought Content: wants to be "a real girl." Cognition: A/O X 4 Insight: Fair Judgment: Fair Interventions PRN's used: N/A Therapeutic interventions: 1:1 assessment,encouragement to express thoughts and feelings, active listening, therapeutic conversation, anxiety management and coping skills education, ensured contract for safety, positive reinforcement, medication administration/education/monitoring, encouragement to attend groups, maintained Q 15 min safety checks. Restraints/seclusion/emergent medication: N/A Justification of Continued Inpatient Stay: Pt needs crisis interruption and medication adjustment and monitoring in a safe, therapeutic environment to prevent her from harming herself and prevent decompensation and readmission. Addendum: 03/16/19 at 1205 by Corinna Anderson RN (Lee) Pt has new orders for Effexor XR 37.5 mg once now, then Effexor 75 mg XR PO daily starting tomorrow.
[2019-03-16] MEDS ORDERED: venlafaxine XR 37.5mg cap (Q24H) PO ONE (11:15)
--- NOTE | 2019-03-16 12:30 | NUR ---
Reassessment: Pt continues meeting nutrient needs with documented 75-100% PO intake on regular diet. Wt stable. LBM 03/15. No nutrition diagnosis at this time. Will continue to follow. Rec: 1. continue regular diet 2. bowel are as needed 3. wt per rx Addendum: 03/16/19 at [address] Amended: Links added.
[2019-03-16] MEDS: lurasidone 20mg tablet PO SCH (18:17)
[2019-03-16 19:25] VITALS: BP 127/81
[2019-03-16] MEDS: traZODone 50mg tablet PO PRN (20:02)
--- NOTE | 2019-03-16 22:45 | NUR ---
Nursing Progress Note: Legal hold: 5250 Client on involuntary status for DTS Report received from nurse with use of SBAR: Aziza DUONG Why are they here: Pt transferred from [facility] after being brought in for self harm r/t hitting self in the head with a rock. Pt. has multiple self-inflicted wounds on forehead and face. Pt. reports that this was the second episode of self-inflicted harm in the past two days. Pt. states, "I wanted to because I'm not a woman... I asked someone if they could cut my penis off. During admission, pt. had moments of responding to internal stimuli, making meditative poses and then waving hands in the air saying, "I'm pushing bad thoughts away". Pt. originally from [place], but has been homeless living in the [facility]. Pt. reports going to [facility] in July of 2018, to go to [employer], then feeling trapped there by a spiritual force. Pt. 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 Assessment What has happened this shift: Pt was in his room at change of shift reading, he came out of his room for snacks but isolates to self. Pt requested sleeping med and stated he would like to go to bed early, explained I could give them when they were scheduled and pt understood. Pt denies s/i but reports has thoughts to hit his head. Complimented patient on his choice of nail wolof color and patient became very animated and bright and stated "thank you, nobody ever tells me my nails look nice!" He stared at his nails and smiling before going to bed. S/I, H/I: Pt denies, though admits to thoughts of SIB; banging head on wall. A/VH: Pt denies. Sleep: see sleep hours ADL's: Independent Group attendance: Yes Were meds taken: yes Any med S/E: None noted or reported. Mental Status Exam Appearance: adequately groomed and dressed wearing pajamas. pt has placed a piece of colorfull paper on his forehead Eye contact: Good. Behavior: Pleasant, cooperative, mostly isolative to self, likes to read. Speech: Clear, audible, normal rate and rhythm Mood: depressed Affect: withdrawn, blunted Thought process: linear Thought Content: wants to sleep Cognition: A/O X 4 Insight: Fair Judgment: Fair Interventions PRN's used: N/A Therapeutic interventions: 1:1 assessment,encouragement to express thoughts and feelings, active listening, therapeutic conversation, anxiety management and coping skills education, ensured contract for safety, positive reinforcement, medication administration/education/monitoring, encouragement to attend groups, maintained Q 15 min safety checks. Restraints/seclusion/emergent medication: N/A Justification of Continued Inpatient Stay: Pt needs crisis interruption and medication adjustment and monitoring in a safe, therapeutic environment to prevent her from harming herself and prevent decompensation and readmission.
[2019-03-17 07:48] VITALS: BP 105/58
[2019-03-17] MEDS: venlafaxine XR 75mg capsule (Q24H) PO SCH (08:21)
--- NOTE | 2019-03-17 12:16 | NUR ---
DISCHARGE PLANNING Met with Poonam to discuss discharge plan. She reported she would like to go to her friends house in [place], [place] upon discharge. She is aware she will need to change her insurance once she gets there. Offered to give her information on resources in [place] which she stated would be helpful to her. She reported she does not have transportation to [place]. Human Resources Project Manager will inquire about bus tickets. MARY Mai
--- NOTE | 2019-03-17 14:02 | NUR ---
Nursing Progress Note: Legal hold: 5250 Client on involuntary status for DTS Report received from CHAN Chun with use of SBAR Why are they here: Pt transferred from [facility] after being brought in for self harm r/t hitting self in the head with a rock. Pt. has multiple self-inflicted wounds on forehead and face. Pt. reports that this was the second episode of self-inflicted harm in the past two days. Pt. states, "I wanted to because I'm not a woman... I asked someone if they could cut my penis off. During admission, pt. had moments of responding to internal stimuli, making meditative poses and then waving hands in the air saying, "I'm pushing bad thoughts away". Pt. originally from [place], but has been homeless living in the [facility]. Pt. reports going to [facility] in July of 2018, to go to [place], then feeling trapped there by a spiritual force. Pt. 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 Assessment What has happened this shift: Up for breakfast, took morning medications and then isolated to room. Seen in hallway briefly a few times but appearing to be quite shy and hesitant. Approached nurse and asked for face cream. Providing cream mad patient smile very brightly and thank nurse profusely. Denied suicidal thoughts and had no self harm behaviors. Stated she would like to go to [place] to live with her friend. Feeling "hopeful." Attended patio outing with peers. S/I, H/I: Denies A/VH: Denies Sleep: napped ADL's: Independent Group attendance: Yes Were meds taken: yes Any med S/E: None Mental Status Exam Appearance: clean. Had applied cream to forehead Eye contact: fair Behavior: Cooperative and pleasant, shy Speech: Clear Mood: depressed Affect: quiet, shy Thought process: linear Thought Content: thinking about discharge and skin Cognition: Alert Insight: Fair Judgment: Fair Interventions PRN's used: N/A Therapeutic interventions: 1:1 assessment,encouragement to express thoughts and feelings, active listening, therapeutic conversation, anxiety management and coping skills education, ensured contract for safety, positive reinforcement, medication administration/education/monitoring, encouragement to attend groups, maintained Q 15 min safety checks. Restraints/seclusion/emergent medication: N/A Justification of Continued Inpatient Stay: Pt needs crisis interruption and medication adjustment and monitoring in a safe, therapeutic environment to prevent her from harming herself and prevent decompensation and readmission.
[2019-03-17] MEDS: lurasidone 20mg tablet PO SCH (17:46)
[2019-03-17 20:00] VITALS: BP 130/93
[2019-03-17] MEDS: traZODone 50mg tablet PO PRN (20:59)
--- NOTE | 2019-03-17 21:42 | NUR ---
Nursing Progress Note: Legal hold: 5250 Client on involuntary status for DTS Report received from nurse with use of SBAR: RHODA Dunn Why are they here: Pt. transferred from [facility] after being brought in for self harm r/t hitting self in the head with a rock. Pt. has multiple self-inflicted wounds on forehead and face. Pt. reports that this was the second episode of self-inflicted harm in the past two days. Pt. states, "I wanted to because I'm not a woman... I asked someone if they could cut my penis off. During admission, pt. had moments of responding to internal stimuli, making meditative poses and then waving hands in the air saying, "I'm pushing bad thoughts away". Pt. originally from [place], but has been homeless living in the [facility]. Pt. reports going to [facility] in July of 2018, to go to [employer], then feeling trapped there by a spiritual force. Pt. 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 Assessment What has happened this shift: Pt denies depression, and anxiety. No delusional statements or observations that pt is responding to IS. Pt states she is feeling better about things ever since she was given a info packet on the [place] [facility] services offered. Pt thinks this will be a good place to receive guidance for undergoing transition. She called and stated "They sounded really nice there. I think it will be good for me." Pt states she needs the trazodone to help sleep, and that during the day she is fairly bored. Attended snack, then went to sleep shortly after medication administration. S/I, H/I: Denies Both A/VH: Denies Both Sleep: See Sleep Assessment ADL's: Independent Group attendance: N/A Were meds taken: Yes Any med S/E: Pt states she is nauseous after taking Latuda, even with enough food. Pt states it resolves after an hour or so. Mental Status Exam Appearance: Personal top and bottoms, hair is matted with dreadlocks, nonskid socks Eye contact: Direct Behavior: Cooperative, Calm, Attended snack, Pacing halls Speech: WNL, Clear Mood: I'm doing okay" Affect: Blunted with brightening Thought process: Linear Thought Content: [place] program for people in gender transition Cognition: A&Ox4 Insight: Fair Judgment: Poor to Fair Interventions PRN's used: Trazodone 100mg for sleep Therapeutic interventions: Introduced self and established rapport, ensured contract for safety, maintained a safe and supportive environment, 1:1 assessment, monitored behaviors and need for intervention, maintained Q 15 min safety checks. Restraints/seclusion/emergency medication: N/A Justification of Continued Inpatient Treatment: Pt. continues to require interruption of current crisis, medication adjustments, and a safe and supportive environment. Per Bob Ang, pt. would be a high risk discharge r/t risk for S/I and readmission.
[2019-03-18 07:52] VITALS: BP 99/71
[2019-03-18] MEDS: venlafaxine XR 75mg capsule (Q24H) PO SCH (07:56)
--- NOTE | 2019-03-18 12:37 | NUR ---
DISCHARGE PLANNING Poonam's friend, Octavio (ph#[phone]) called and said that Poonam can stay with her and her family. They own [facility] in [place], [place]. She reported that Poonam needs to make a donation in order to stay with them. She noted last time she only made a $4 donation and needs to make a bigger one than that to stay with them. MARY Mai
--- NOTE | 2019-03-18 17:29 | NUR ---
NURSING PROGRESS NOTE Legal hold: 5250 Client on involuntary status for DTS Report received from CHAN Chun with use of SBAR Why are they here: Pt transferred from [facility] after being brought in for self harm r/t hitting self in the head with a rock. Pt. has multiple self-inflicted wounds on forehead and face. Pt. reports that this was the second episode of self-inflicted harm in the past two days. Pt. states, "I wanted to because I'm not a woman... I asked someone if they could cut my penis off. During admission, pt. had moments of responding to internal stimuli, making meditative poses and then waving hands in the air saying, "I'm pushing bad thoughts away". Pt. originally from [place], but has been homeless living in the [facility]. Pt. reports going to [facility] in July of 2018, to go to [place], then feeling trapped there by a spiritual force. Pt. 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 Assessment What has happened this shift: Up for breakfast, took morning medications and then isolated to room. Seen in hallway briefly a few times but appearing to be quite shy and hesitant. Seen out on unit today with cream visible on forehead. Happy and smiling, looking forward to going to [facility]. Denied suicidal thoughts and had no self harm behaviors. Brighter affect today. S/I, H/I: Denies A/VH: Denies Sleep: napped ADL's: Independent Group attendance: Yes Were meds taken: yes Any med S/E: None Mental Status Exam Appearance: clean. Had applied cream to forehead Eye contact: good Behavior: Cooperative Speech: Clear Mood: brightened Affect: shyness Thought process: linear Thought Content: thinking about discharge Cognition: Alert Insight: Fair Judgment: Fair Interventions PRN's used: N/A Therapeutic interventions: 1:1 assessment,encouragement to express thoughts and feelings, active listening, therapeutic conversation, anxiety management and coping skills education, ensured contract for safety, positive reinforcement, medication administration/education/monitoring, encouragement to attend groups, maintained Q 15 min safety checks. Restraints/seclusion/emergent medication: N/A Justification of Continued Inpatient Stay: Pt needs crisis interruption and medication adjustment and monitoring in a safe, therapeutic environment to prevent her from harming herself and prevent decompensation and readmission.
[2019-03-18] MEDS: lurasidone 20mg tablet PO SCH (18:01)
[2019-03-18 20:00] VITALS: BP 124/87
[2019-03-18] MEDS: traZODone 50mg tablet PO PRN (20:26)
--- NOTE | 2019-03-19 01:26 | NUR ---
Nursing Progress Note: Legal hold: 5250 Expires 03/22 @ 7558 Client on involuntary status for DTS Report received from nurse with use of SBAR: RHODA Espino Why are they here: Pt. transferred from [facility] after being brought in for self-harm r/t hitting self in the head with a rock. Pt. has multiple self-inflicted wounds on forehead and face. Pt. reports that this was the second episode of self-inflicted harm in the past two days. Pt. states, "I wanted to because I'm not a woman... I asked someone if they could cut my penis off. During admission, patient had moments of responding to internal stimuli, making meditative poses and then waving hands in the air saying, "I'm pushing bad thoughts away". Patient is originally from [place], but has been homeless living in the [facility]. Pt. reports going to [facility] in July of 2018, to go to [place], then feeling trapped there by a spiritual force. Pt. 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 Assessment What has happened this shift: Patient sitting in her room at shift change. This medical underwriter introduces self and establishes rapport. Pt c/o of back tooth pain 03/29. Tylenol was administered with effect. Will need to continue to monitor. Pt denies SI, A/VH. Pts SI had to do with her feelings of not being totally female. Pt reports feeling bored, but appreciative of her time here at [facility]. This medical underwriter encouraged pt. to continue to work through these feelings, she is who she is. Pts eye contact is intermittent direct eye contact to quickly lowering her gaze. Pt is guarded, but appears to smile intermittently. Pt requested a Trazadone around 2030 and has been sleeping. Will continue to monitor. S/I, H/I: Pt denies both, none observed. A/VH: Pt denies both, none observed. Sleep: Currently sleeping, Trazadone 100mg administered. See Sleep Assessment for total hours. ADL's: Independent Group attendance: mold shifter, no group. Were meds taken: Takes medication without incident. Only PRN administered. Any med S/E: None reported, or observed. Mental Status Exam Appearance: Personal top and bottoms, hair is matted with dreadlocks, nonskid socks Eye contact: Intermittent direct to lowering eyes. Behavior: Cooperative, guarded Speech: Clear, audible Mood: Better, hopeful Affect: Blunted with brightening Thought process: Linear Thought Content: [place] program for people in gender transition Cognition: A&Ox4 Insight: Fair Judgment: Poor to Fair Interventions PRN's used: Trazodone 100mg for sleep Therapeutic interventions: Introduced self and established rapport, ensured contract for safety, maintained a safe and supportive environment, 1:1 assessment, monitored behaviors and need for intervention, maintained Q 15 min safety checks. Restraints/seclusion/emergency medication: N/A Justification of Continued Inpatient Treatment: Pt. continues to require interruption of current crisis, medication adjustments, and a safe and supportive environment.
[2019-03-19] MEDS ORDERED: traZODone 50mg tablet PO ONE (02:15)
[2019-03-19] MEDS: LORazepam 1 MG tablet PO PRN (04:06)
[2019-03-19 08:00] VITALS: BP 97/65
[2019-03-19] MEDS: venlafaxine XR 75mg capsule (Q24H) PO SCH (08:15)
[2019-03-19] MEDS ORDERED: TRAZ-251 PO (14:55)
[2019-03-19] MEDS ORDERED: VENL75CA61 PO (14:55)
[2019-03-19] MEDS ORDERED: LURA20TA PO (14:55)
--- NOTE | 2019-03-19 15:08 | NUR ---
[facility] to leave FriMar 22 at 7:30 AM, bus boards at 7:10 AM. Poonam will need a cab ride to bus station as well as a couple sack lunches for the 25 hour bus ride to [place], [place]. Bus ticket is in the 2640 sleeve in her binder. MARY Mai
--- NOTE | 2019-03-19 15:34 | NUR ---
[employer] Took out $40 [employer] for Poonam's housing donation in [place]. Approved by Gracy Manrique. MARY Mai
--- NOTE | 2019-03-19 16:05 | NUR ---
NURSING PROGRESS NOTE Legal hold: 5250 Client on involuntary status for DTS Report received from CHAN Hearn with use of SBAR Why are they here: Pt transferred from [facility] after being brought in for self harm r/t hitting self in the head with a rock. Pt. has multiple self-inflicted wounds on forehead and face. Pt. reports that this was the second episode of self-inflicted harm in the past two days. Pt. states, "I wanted to because I'm not a woman... I asked someone if they could cut my penis off. During admission, pt. had moments of responding to internal stimuli, making meditative poses and then waving hands in the air saying, "I'm pushing bad thoughts away". Pt. originally from [place], but has been homeless living in the [facility]. Pt. reports going to [facility] in July of 2018, to go to [facility], then feeling trapped there by a spiritual force. Pt. 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 Assessment What has happened this shift: Did not want to come to breakfast because she thought she looked "grotesque." Encouraged to come to breakfast after others were finished, which she did and ate whole tray. Denies suicidal or self harm thoughts and is looking forward [facility]. Bus ticket info in notes. S/I, H/I: Denies A/VH: Denies Sleep: napped ADL's: Independent Group attendance: Yes Were meds taken: yes Any med S/E: None Mental Status Exam Appearance: clean, cream to forehead Eye contact: direct Behavior: Cooperative Speech: Clear Mood: brightened Affect: shy Thought process: linear Thought Content: thinking about discharge Cognition: Alert Insight: Fair Judgment: Fair Interventions PRN's used: N/A Therapeutic interventions: 1:1 assessment,encouragement to express thoughts and feelings, active listening, therapeutic conversation, anxiety management and coping skills education, ensured contract for safety, positive reinforcement, medication administration/education/monitoring, encouragement to attend groups, maintained Q 15 min safety checks. Restraints/seclusion/emergent medication: N/A Justification of Continued Inpatient Stay: Pt needs crisis interruption and medication adjustment and monitoring in a safe, therapeutic environment to prevent her from harming herself and prevent decompensation and readmission.
[2019-03-19] MEDS: lurasidone 20mg tablet PO SCH (17:55)
[2019-03-19 20:00] VITALS: BP 103/78
[2019-03-19] MEDS: traZODone 50mg tablet PO PRN (23:38)
--- NOTE | 2019-03-19 23:58 | NUR ---
Nursing Progress Note: Legal hold: 5250 Expires 03/22 @ 1739 Client on involuntary status for DTS Report received from nurse with use of SBAR: RHODA Espino Why are they here: Pt. transferred from [facility] after being brought in for self-harm r/t hitting self in the head with a rock. Pt. has multiple self-inflicted wounds on forehead and face. Pt. reports that this was the second episode of self-inflicted harm in the past two days. Pt. states, "I wanted to because I'm not a woman... I asked someone if they could cut my penis off. During admission, patient had moments of responding to internal stimuli, making meditative poses and then waving hands in the air saying, "I'm pushing bad thoughts away". Patient is originally from [place], but has been homeless living in the [facility]. Pt. reports going to [facility] in July of 2018, to go to [employer], then feeling trapped there by a spiritual force. Pt. 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 Assessment What has happened this shift: Patient sitting in the hallway chair at shift change. Pt is quiet this shift, pt brightens when this technical publications writer comments on her pretty dress. Pt is looking forward to her discharge on Friday and comments on being bored, but again happy with the care she has received here. Pt. isolates to self. Pt sleeps until 2330 then awakes and asks for her Trazadone. Pt denies SI, A/VH. No delusional comments made this shift. S/I, H/I: Pt denies both, none observed. A/VH: Pt denies both, none observed. Sleep: Currently sleeping, Trazadone 100mg administered. See Sleep Assessment for total hours. ADL's: Independent Group attendance: hammer setter, no group. Were meds taken: Takes medication without incident. Only PRN administered. Any med S/E: None reported, or observed. Mental Status Exam Appearance: Disheveled, wearing a paisley printed dress and pink sweater. Eye contact: Intermittent direct to lowering eyes. Behavior: Cooperative, guarded, isolates to self. Speech: Clear, audible Mood: Quiet Affect: Blunted with brightening Thought process: Linear Thought Content: Discharge Cognition: A&Ox4 Insight: Fair Judgment: Fair Interventions PRN's used: Trazodone 150 mg for sleep Therapeutic interventions: Introduced self and established rapport, ensured contract for safety, maintained a safe and supportive environment, 1:1 assessment, monitored behaviors and need for intervention, maintained Q 15 min safety checks. Restraints/seclusion/emergency medication: N/A Justification of Continued Inpatient Treatment: Pt. continues to require interruption of current crisis, medication adjustments, and a safe and supportive environment.
[2019-03-20 08:00] VITALS: BP 117/80
[2019-03-20] MEDS: venlafaxine XR 75mg capsule (Q24H) PO SCH (08:47)
[2019-03-20] MEDS: LORazepam 1 MG tablet PO PRN (13:24)
--- NOTE | 2019-03-20 14:16 | NUR ---
NURSING PROGRESS NOTE Legal hold: 5250 Client on involuntary status for DTS Report received from CHAN Hearn with use of SBAR Why are they here: Pt transferred from [facility] after being brought in for self harm r/t hitting self in the head with a rock. Pt. has multiple self-inflicted wounds on forehead and face. Pt. reports that this was the second episode of self-inflicted harm in the past two days. Pt. states, "I wanted to because I'm not a woman... I asked someone if they could cut my penis off. During admission, pt. had moments of responding to internal stimuli, making meditative poses and then waving hands in the air saying, "I'm pushing bad thoughts away". Pt. originally from [place], but has been homeless living in the [facility]. Pt. reports going to [facility] in July of 2018, to go to [facility], then feeling trapped there by a spiritual force. Pt. 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 Assessment What has happened this shift: Received Pt in bed sleeping w/o distress at beginning of shift. Pt took AM med and ate meals in community room. Pleasant and cooperative with a baseline of mild anxiety; I feel uncomfortable in my body. Requested and received Ativan for anxiety. Spent part of afternoon playing [employer] in community room. Denies SI/HI and spent time in room drawing and reading. Took a nap in AM after breakfast. S/I, H/I: Denies A/VH: Denies Sleep: AM Nap ADL's: Independent Group attendance: Yes Were meds taken: Yes Any med S/E: None Mental Status Exam Appearance: Casual in green scrubs Eye contact: Direct Behavior: Cooperative Speech: Clear Mood: Depressed Affect: Flat Thought process: Linear Thought Content: Body image Cognition: Alert Insight: Fair Judgment: Fair Interventions PRN's used: Ativan Therapeutic interventions: 1:1 assessment,encouragement to express thoughts and feelings, active listening, therapeutic conversation, anxiety management and coping skills education, ensured contract for safety, positive reinforcement, medication administration/education/monitoring, encouragement to attend groups, maintained Q 15 min safety checks. Restraints/seclusion/emergent medication: N/A Justification of Continued Inpatient Stay: Pt needs crisis interruption and medication adjustment and monitoring in a safe, therapeutic environment to prevent her from harming herself and prevent decompensation and readmission.
[2019-03-20] MEDS: lurasidone 20mg tablet PO SCH (17:28)
[2019-03-20 19:58] VITALS: BP 114/72
--- NOTE | 2019-03-21 01:09 | NUR ---
Nursing Progress Note: Legal hold: 5250 Client on involuntary status for DTS Report received from nurse with use of SBAR: CHAN Espino Why are they here: Pt. transferred from [facility] after being brought in for self harm r/t hitting self in the head with a rock. Pt. has multiple self-inflicted wounds on forehead and face. Pt. reports that this was the second episode of self-inflicted harm in the past two days. Pt. states, "I wanted to because I'm not a woman... I asked someone if they could cut my penis off. During admission, pt. had moments of responding to internal stimuli, making meditative poses and then waving hands in the air saying, "I'm pushing bad thoughts away". Pt. originally from [place], but has been homeless living in the [facility]. Pt. reports going to [facility] in July of 2018, to go to [employer], then feeling trapped there by a spiritual force. Pt. 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 Assessment What has happened this shift: Pt was sleeping during shift change and actually slept for at least two hours. When woken up by this RN, patient was pleasant and cooperative for 1:1 physical assessment. Pt denies any S/I, H/I, A/VH. When asked how her day had been she states that he had a pretty good day but felt discomfort. Pt continues to isolate to her room. She states that she gets really bored and would help if there was a TV in her room. She also goes on to talking about not being able to sit still when watching several movies. "I tried to sit still to watch this movie but I just could't do it." Pt denies any depression or anxiety but states that she would like to have her sleeping medications at around midnight. Offered pt the medication before she returned to bed but she refused. At around 0030, pt came out of her room and asked for sleeping medications. However, few later she changed her mind stating that "I don't like how it makes me feel." Pt is currently sitting by the nurse's station eating a snack. S/I, H/I: Denies Both A/VH: Denies Both Sleep: See Sleep Assessment ADL's: Independent Group attendance: N/A Were meds taken: No Any med S/E: None reported or observed Mental Status Exam Appearance: Personal top and bottoms, hair is matted with dreadlocks, nonskid socks Eye contact: Direct Behavior: Sleepy at first, cooperative, calm Speech: Normal rate and rhythm Mood: Good but feeling uncomfortable Affect: Blunted with intermittent brightening Thought process: Linear Thought Content: Not being able to watch TV Cognition: A&Ox4 Insight: Fair Judgment: Poor to Fair Interventions PRN's used: None Therapeutic interventions: Introduced self and established rapport, ensured contract for safety, maintained a safe and supportive environment, 1:1 assessment, monitored behaviors and need for intervention, maintained Q 15 min safety checks. Restraints/seclusion/emergency medication: N/A Justification of Continued Inpatient Treatment: Pt. continues to require interruption of current crisis, medication adjustments, and a safe and supportive environment. Per Bob Ang, pt. would be a high risk discharge r/t risk for S/I and readmission.
[2019-03-21] MEDS: venlafaxine XR 75mg capsule (Q24H) PO SCH (07:42)
[2019-03-21 08:00] VITALS: BP 126/83
[2019-03-21] MEDS: LORazepam 1 MG tablet PO PRN (11:12)
--- NOTE | 2019-03-21 14:54 | NUR ---
NURSING PROGRESS NOTE Legal hold: 5250 Client on involuntary status for DTS Report received from CHAN Hearn with use of SBAR Why are they here: Pt transferred from [facility] after being brought in for self harm r/t hitting self in the head with a rock. Pt. has multiple self-inflicted wounds on forehead and face. Pt. reports that this was the second episode of self-inflicted harm in the past two days. Pt. states, "I wanted to because I'm not a woman... I asked someone if they could cut my penis off. During admission, pt. had moments of responding to internal stimuli, making meditative poses and then waving hands in the air saying, "I'm pushing bad thoughts away". Pt. originally from [place], but has been homeless living in the [facility]. Pt. reports going to [facility] in July of 2018, to go to [facility], then feeling trapped there by a spiritual force. Pt. 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 Assessment What has happened this shift: Pt up pacing the halls at start of shift. He mentioned his "antidepressant" asking, "when will I get it." He was given it a little before 0800. Pt reports with a huge smile on her face that she is leaving on a "bus" tomorrow to [facility] to go home to her friends house." Pt asked for an Ativan stating, "I feel anxious." A few hours later she request Ativan again stating, "the time is going by so slow, ' ' I just keep looking at the clock hoping it is time to leave." Encouraged pt to do something to keep her hands busy such as coloring or a puzzle. She denies SI. S/I, H/I: Denies A/VH: Denies Sleep: No naps ADL's: Independent Group attendance: Yes Were Meds taken: Yes Any med S/E: None Mental Status Exam Appearance: Green scrubs she asked if she could take them home. Eye contact: Direct Behavior: Cooperative Speech: Clear Mood: Euthymic Affect: Congruent with mood Thought process: Linear Thought Content: Body image Cognition: Alert Insight: Fair Judgment: Fair Interventions PRN's used: Ativan Therapeutic interventions: 1:1 assessment, medication administration/education/monitoring, encouragement to attend groups, prompts to keep busy by coloring doing a puzzle after multiple request to give her something for anxiety, maintained Q 15 min safety checks. Restraints/seclusion/emergent medication: N/A Justification of Continued Inpatient Stay: Pt stable and will be leaving tomorrow on a bus back home to [place].
[2019-03-21] MEDS: lurasidone 20mg tablet PO SCH (17:28)
[2019-03-21 19:58] VITALS: BP 121/84
[2019-03-21] MEDS: traZODone 50mg tablet PO PRN (20:15)
--- NOTE | 2019-03-22 00:53 | NUR ---
NURSING PROGRESS NOTE Legal hold: 5250 Client on involuntary status for DTS Report received from CHAN Espino with use of SBAR Why are they here: Pt transferred from [facility] after being brought in for self harm r/t hitting self in the head with a rock. Pt. has multiple self-inflicted wounds on forehead and face. Pt. reports that this was the second episode of self-inflicted harm in the past two days. Pt. states, "I wanted to because I'm not a woman... I asked someone if they could cut my penis off. During admission, pt. had moments of responding to internal stimuli, making meditative poses and then waving hands in the air saying, "I'm pushing bad thoughts away". Pt. originally from [place], but has been homeless living in the [facility]. Pt. reports going to [facility] in July of 2018, to go [facility], then feeling trapped there by a spiritual force. Pt. 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 Assessment What has happened this shift: Pt was sitting outside TV room during shift change. Pt states that she is really looking forward leaving tomorrow. She asks what is the earliest she can get her sleeping medication, as she wanted to have a good night sleep in preparation for her travel tomorrow. This was given at around 2030. Pt had multiple markings on her body from what appeared to be a marker. Pt was cooperative during 1:1 physical assessment and when asked about S/I and H/I, she denies with a smile. When asked if she is excited about her placement, she states that she is and that she believes this will be a good place for her. Prior to going to bed, advised pt she will be woken up at 0500 since she wants to take a shower and she will likely be living at 0630. She agrees and goes to sleep after receiving Trazodone. S/I, H/I: Denies A/VH: Denies Sleep: Currently sleeping, see sleep assessment for total hours ADL's: Independent Group attendance: none during casino shift manager Were Meds taken: Yes Any med S/E: None Mental Status Exam Appearance: Appropriate, wearing green unit scrubs Eye contact: Direct Behavior: Cooperative, pleasant Speech: Clear Mood: Excited Affect: Bright Thought process: Linear Thought Content: Being discharged to [facility] Cognition: Alert Insight: Fair Judgment: Fair Interventions PRN's used: Trazodone 150mg Therapeutic interventions: 1:1 assessment, medication administration/education/monitoring, encouragement to attend groups, prompts to keep busy by coloring doing a puzzle after multiple request to give her something for anxiety, maintained Q 15 min safety checks. Restraints/seclusion/emergent medication: N/A Justification of Continued Inpatient Stay: Pt stable and will be leaving tomorrow on a bus back home to [place].
[2019-03-22] MEDS: LORazepam 1 MG tablet PO PRN (01:32)
== END 2019-03-22 06:50 | disposition home or self-care (01) | DRG 751 ==
LOC: ADULT MH 13:26
PROVIDERS: ADMIT Psychiatry & Neurology Psychiatry; ATTEND Psychiatry & Neurology Psychiatry
DX: F29 Unspecified psychosis not due to a substance or known physiological condition (principal); R45.851 Suicidal ideations; X79.XXXA Intentional self-harm by blunt object, initial encounter; F12.90 Cannabis use, unspecified, uncomplicated; F64.9 Gender identity disorder, unspecified; Z23 Encounter for immunization; Y93.89 Activity, other specified; Y92.89 Other specified places as the place of occurrence of the external cause; Y99.8 Other external cause status; F64.0 Transsexualism; S00.83XA Contusion of other part of head, initial encounter
CPT/HCPCS: 36415; 70450; 73140; 80061; 83036; 87081; Q0163; Q2037